=== PATIENT | female | born 1950 | race Caucasian/White ===

== ENCOUNTER → 2016-09-22 | Outpatient (CLI) | payer OTHER ==
[~2016-09-22] MED LIST: ANAS1TAB6 PO; CALC500C70 PO; MULT-506 PO; OYST500T47 PO; PRVC/40 PO
[2016-09-22 10:45] LABS: ESTIMATED AVERAGE GLUCOSE 103 mg/dl; HA1C FLAG Normal (Normal)
[2016-09-22 10:55] LABS: CHOLESTEROL/HDL RATIO 3.1
--- NOTE | 2016-10-20 12:23 | CODING QUERY MEDICAL NECESSITY ---
SUPPORTING DIAGNOSIS NEEDED A supporting diagnosis is required for the test/procedure performed on this patient in order for us to be reimbursed by the patient's insurance. Please provide a supporting diagnosis for the following test/procedure listed below next to the test name along with your signature. *If there is no additional diagnosis for this patient that would support the following test/procedure please document that below next to the test/procedure. Test(s)/Procedure(s) that require a supporting diagnosis: * GLYCATED HEMOGLOBIN DIAGNOSIS: * DOS: 09/22/16 Provider Signature: Date: Thank you Denia Molina Health Information Management Once completed, please kindly fax back to [phone] For questions please call [phone]
== END | disposition home or self-care (01) ==
LOC: C.LABSPEC 16:29
PROVIDERS: ATTEND Family Medicine
DX: Z13.1 Encounter for screening for diabetes mellitus (principal); Z83.3 Family history of diabetes mellitus; E78.2 Mixed hyperlipidemia; C50.912 Malignant neoplasm of unspecified site of left female breast

== ENCOUNTER → 2016-10-05 | Outpatient (CLI) | payer OTHER ==
--- NOTE | 2016-10-05 16:38 | MAMMOGRAPHY REPORT ---
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 She presents for annual bilateral mammography. TECHNIQUE: Bilateral CC and MLO 2-D digital and tomosynthesis images, spot magnification CC and ML v iews of each breast were obtained. Current study was also evaluated with a Computer Aided Detection (CAD) system. COMPARISON: Comparison is made to exams dated: 04/06/2016 mammogram, 10/01/2015 mammogram, 04/02/2015 mammogram - [facility], and 09/18/2014 mammogram. BREAST COMPOSITION: The tissue of both breasts is heterogeneously dense, which may obscure small ma sses. FINDINGS: There is mild diffuse skin thickening and trabecular edema throughout the left breast, wit h expected architectural distortion in the upper outer posterior left breast, secondary to prior lum pectomy and radiation. There are round) calcifications anterior and medial to the surgical site in the left breast in particular, a grouping of calcifications in the approximate 12:00 middle one thir d of the left breast is stable to slightly coarsened comparing to the prior spot magnification views . No new suspicious grouping or cluster of calcifications are seen in the left breast. No obvious new mass or unexpected architectural distortion. There is a stable asymmetry in the central right breast that appears similar on all available prior mammograms dating back to at least 05/21/2009, therefore likely benign. There is a new faintly visu alized grouping of calcifications in the anterior 6:00/subareolar right breast for which additional spot magnification views were obtained. With spot magnification views there is an approximately 2 m m cluster of faint punctate and amorphous microcalcifications they may have been present on the 2016 exam but are slightly increased in conspicuity. They are different in morphology from the patient' s left breast DCIS. Given the small grouping and faint nature of these calcifications, a short inte rval follow-up right mammogram including repeat spot magnification views is recommended to ensure st ability in 6 months. No obvious new mass or unexpected architectural distortion is identified in th e right breast. IMPRESSION: ACR-BI-RADS CATEGORY 3: PROBABLY BENIGN 1. A newly visualized faint grouping of punctate and amorphous microcalcifications in the 6:00 ante rior subareolar right breast may represent benign fibrocystic changes. However, a short interval fo llow-up right mammogram including spot magnification views is recommended to ensure stability in 6 m onths. 2. There are expected post-therapeutic changes in the left breast, with probably benign calcificati ons anterior and medial to the surgical site. Continued attention at six-month follow-up is again r ecommended. These results and recommendations were discussed with the patient at the time of the exam. She tent atively scheduled a follow-up appointment prior to leaving our department. Approximately 10% of breast cancers are not detected with mammography. A negative mammographic repor t should not delay biopsy if a clinically suggestive mass is present. Cici Oconnell M.D. ay/:10/05/2016 15:00:08 Automobile Body Worker: Shon SEBASTIAN(Charo)(M), [facility] letter sent: Follow Up Recommended 3 BI-RADS Code: ACR-BI-RADS Category 3: Probably Benign
== END | disposition home or self-care (01) ==
LOC: C.MAMM 13:26
PROVIDERS: ATTEND Family Medicine
DX: Z86.000 Personal history of in-situ neoplasm of breast (principal); R92.8 Other abnormal and inconclusive findings on diagnostic imaging of breast; R92.1 Mammographic calcification found on diagnostic imaging of breast; Z92.3 Personal history of irradiation

== ENCOUNTER → 2017-04-08 | Outpatient (CLI) | payer OTHER ==
[~2017-04-08] MED LIST changes: -ANAS1TAB6 PO; -CALC500C70 PO
--- NOTE | 2017-04-08 12:38 | MAMMOGRAPHY REPORT ---
BILATERAL DIGITAL DIAGNOSTIC MAMMOGRAM TOMOSYNTHESIS WITH CAD: 04/08/2017 CLINICAL HISTORY: History of left breast cancer status post lumpectomy and radiation therapy, here fo r short interval follow-up of bilateral calcifications. She reports no current complaints. TECHNIQUE: Breast tomosynthesis in addition to standard 2D mammography was performed. Current study was also evaluated with a Computer Aided Detection (CAD) system. Bilateral CC and MLO 2-D and tomosy nthesis images and spot magnification bilateral cc and ML views were obtained. COMPARISON: Comparison is made to exams dated: 10/05/2016 mammogram, 04/06/2016 mammogram, 10/01/2015 [facility], 09/18/2014 mammogram, 08/02/2014 mammogram, and 07/17/2014 mamm ogram. BREAST COMPOSITION: The tissue of both breasts is heterogeneously dense, which may obscure small mas ses. FINDINGS: Again noted are post surgical changes in the left upper outer quadrant from prior lumpectom y, including stable density and architectural distortion at the lumpectomy bed. There is stable mild diffuse left breast skin thickening, likely related to prior radiation therapy. Again noted are loo sely grouped calcifications in the left 12:00 breast anterior and medial to the lumpectomy bed. The calcifications are stable on spot magnification views dating back to September 2015 and are probably adair gn. Spot magnification views of the right breast demonstrate a small faint 2 mm cluster of punctate benign-appearing calcifications in the right anterior subareolar/6:00 breast, which are stable on spo t magnification views compared to the September 2016 exam, and in retrospect are likely stable compared t o prior full field views from the 2012 and 2010 exams. The calcifications are probably benign. The remainder of both breasts are stable compared to prior exams, without suspicious masses, calcific ations, or areas of architectural distortion noted. Other scattered benign-appearing calcifications are stable. IMPRESSION: ACR-BI-RADS CATEGORY 3: PROBABLY BENIGN 1. Stable posttreatment changes in the left breast. Loosely grouped calcifications in the left 12:0 0 breast medial and anterior to the lumpectomy bed are stable dating back to the September 2015 exam and are probably benign given long-term stability. 2. Small cluster of punctate benign-appearing calcifications in the right anterior breast is stable compared to the September 2016 exam and likely also the 2012 and 2010 exams. The calcifications are prob ably benign. 3. Recommend bilateral diagnostic mammograms in 6 months to confirm longer stability of bilateral ca lcifications on spot magnification views. The patient has been verbally notified of the results. Approximately 10% of breast cancers are not detected with mammography. A negative mammographic report should not delay biopsy if a clinically suggestive mass is present. Rimma Pearce M.D. ah/:04/08/2017 11:27:32 Powertrain Design Engineer: Julia SEBASTIAN(Charo)(M), [facility] letter sent: Follow Up Recommended 3 BI-RADS Code: ACR-BI-RADS Category 3: Probably Benign
== END | disposition home or self-care (01) ==
LOC: C.MAMM 10:52
PROVIDERS: ATTEND Physician Assistant
DX: R92.1 Mammographic calcification found on diagnostic imaging of breast (principal); Z98.890 Other specified postprocedural states

== ENCOUNTER → 2017-10-06 | Outpatient (CLI) | payer OTHER ==
--- NOTE | 2017-10-06 14:14 | MAMMOGRAPHY REPORT ---
BILATERAL DIGITAL DIAGNOSTIC MAMMOGRAM TOMOSYNTHESIS WITH CAD: 10/06/2017 CLINICAL HISTORY: History of left breast cancer status post lobectomy and radiation therapy, here for short interval follow-up of bilateral calcifications. She reports no current complaints. TECHNIQUE: Breast tomosynthesis in addition to standard 2D mammography was performed. Current study was also evaluated with a Computer Aided Detection (CAD) system. Bilateral CC and MLO 2D and tomosyn thesis images and spot magnification bilateral CC and ML views were obtained. COMPARISON: Comparison is made to exams dated: 04/08/2017 mammogram, 10/05/2016 mammogram, 04/06/2016 m ammogram, 10/01/2015 mammogram, 04/02/2015 mammogram - [facility], and 09/18/2014 mammo gram. BREAST COMPOSITION: The tissue of both breasts is heterogeneously dense, which may obscure small mas ses. FINDINGS: Spot magnification views of the right breast again demonstrate a small 2 mm cluster of punc germain benign-appearing calcifications in the right anterior inferior breast. The calcifications are s table on spot magnification views dating back to at least the September 2016 exam, and in retrospect are likely present on the MLO view from the 2012 exam. Spot magnification views of the left breast again demonstrate loosely grouped calcifications within the left 12:00 breast anterior and medial to the l umpectomy bed. The calcifications are stable on spot magnification views dating back to at least Sep exam, and are probably benign given 2 years of stability. The remainder of both breasts are stable compared to prior exams, without suspicious masses, calcific ations, or areas of architectural distortion noted. There are stable post surgical changes in the le ft upper outer quadrant posteriorly from prior lumpectomy. Asymmetry in the right posterior breast o n the cc view is stable compared to multiple prior exams. IMPRESSION: ACR-BI-RADS CATEGORY 3: PROBABLY BENIGN Stable posttreatment changes in the left breast. Loosely grouped calcifications in the left 12:00 br east are stable dating back to the September 2015 exam and are probably benign. Small cluster of punctat e calcifications in the right anterior breast is stable dating back to the September 2016 exam and is als o probably benign. Recommend bilateral diagnostic tomosynthesis mammograms in 12 months to confirm l onger-term stability of bilateral calcifications. The patient has been verbally notified of the results. Approximately 10% of breast cancers are not detected with mammography. A negative mammographic report should not delay biopsy if a clinically suggestive mass is present. Rimma Pearce M.D. ah/:10/06/2017 11:25:04 Manager Icu: Isha Cartwright, [facility] letter sent: Follow Up Recommended 3 BI-RADS Code: ACR-BI-RADS Category 3: Probably Benign
== END | disposition home or self-care (01) ==
LOC: C.MAMM 10:27
PROVIDERS: ATTEND Nurse Practitioner Family
DX: R92.0 Mammographic microcalcification found on diagnostic imaging of breast (principal); N64.89 Other specified disorders of breast

== ENCOUNTER 2020-05-24 11:13 | Observation (INO) ==
[2020-05-24] MEDS ORDERED: SODIUM CHLORIDE 0.9% 1000ML 1,000 ML IV ONE (12:31)
--- NOTE | 2020-05-24 12:37 | Emergency Department Note ---
History of Present Illness General Chief complaint: Syncope Stated complaint: PASSED OUT TWICE Time Seen by Provider: 05/24/20 11:47 Source: patient and family Mode of arrival: ambulatory Limitations: no limitations History of Present Illness Provider complaint: Passing out Onset (ago): day(s) 2 Current Pain Intensity: 0 Associated symptoms: + malaise and + nausea/vomiting Treatments prior to arrival: none This is a 69-year-old female who presents with her at bedside due to concern for recurrent episodes of passing out. states she had an episode 1 month ago, and thought it was strictly due to dehydration so she did not go seek evaluation. States that on Wednesday while they were outside tending to the lawn, she again passed out twice. states he had to call a neighbor to help, get her back into the house. States he did not notice any seizure-like activity. Patient states she can feel herself getting lightheaded, nauseated, develops numbness and tingling in her hands and feet, and then the next thing she knows she is on the floor. Patient denies any injury secondary to these episodes. Patient still maintains she believes it is secondary to dehydration but thought she should seek additional evaluation. Patient most concerned that she has a history of breast cancer remotely. Patient denies any new medications or change in diet. Patient denies any cardiac history in herself or any family members. No family history of seizures. Patient denies any recent infection, cough or cold symptoms. Patient denies any known sick contacts or exposure to coronavirus. Pt seen during a time of high acuity and national emergency pandemic while wearing PPE. Home Medications Home Medications Medication Instructions Recorded Confirmed Type multivitamin 1 tab PO QPM #0 tab 10/24/14 05/24/20 History aspirin [Aspirin Low Dose] 81 mg PO DAILY 05/24/20 05/24/20 History pravastatin 20 mg PO DAILY 05/24/20 05/24/20 History doxycycline hyclate 100 mg PO BID 13 Days #26 cap 05/25/20 Rx omeprazole 40 mg PO DAILY #14 cap 05/25/20 Rx ondansetron 4 mg PO Q6H PRN #10 tab 05/25/20 Rx Allergies Allergy/AdvReac Type Severity Reaction Status Date / Time ranitidine Allergy Intermediate Rash Verified 05/24/20 13:21 Past Med/Surg History Medical History (Updated 05/26/20 @ 23:04 by Charity Cruz, ) Breast cancer Cancer of urinary tract GERD (gastroesophageal reflux disease) Lyme disease 2 episodes; previous episode 2019 Osteoarthritis Tremor HANDS-"REALLY NERVOUS"-NO DX-F/U PCP Surgical History History of hysterectomy AND OTHER OVARY Hx of lumpectomy LEFT-LEFT ARM RESTRICTION Nausea and vomiting after administration of anesthetic agent Ovarian 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 Diabetes Heart disease Mother Kidney stones Heart disease Social History Smoking Status: Never smoker Second Hand Exposure: No; Hx Alcohol Use: Yes Alcohol type: wine Hx Substance Use: No Preferred Language: Zambian Communication Ability: Effective Visual Impairment: No Limitations Eyelet Cutter Required: No Beliefs That Will Affect Care: None marital status: Current Living Situation: Spouse Current Living Situation Comment: lives in [place] current occupational status: retired current occupation: worked at [employer], [employer] work, other [employer] work How many Children do You have: 1 Feels Safe at Home: Yes Assistive Devices: None Review of Systems See HPI for pertinent positives & negatives. and A total of 10 systems reviewed and were otherwise negative Physical Exam Vital Signs Vital Signs - 24 hr 05/24/20 11:19 05/24/20 14:00 05/24/20 14:50 Temperature 37.1 C Temperature Source Oral Pulse Rate - Lying 74 Pulse Rate - Sitting 76 Pulse Rate - Standing 78 Pulse Rate 78 73 Pulse Rate [Exercises] Respiratory Rate 18 17 Respiratory Rate [Exercises] Respiratory Effort / Characteristics Non-Labored Spontaneous Respiratory Depth Normal Respiratory Pattern Regular Blood Pressure - Lying 124/68 Blood Pressure - Sitting 138/71 Blood Pressure- Standing 138/73 Blood Pressure 148/82 H 118/63 Blood Pressure Mean 104 83 Blood Pressure Position Sitting Pulse Oximetry 96 96 Pulse Oximetry [Exercises] Oxygen Delivery Method Room Air Room Air Sepsis Recent Fever Within 48 Hours No Sepsis New/Unexplained Change in Mental Status N/A Sepsis Action Taken by Nursing No Action Required 05/24/20 15:03 Temperature Temperature Source Pulse Rate - Lying Pulse Rate - Sitting Pulse Rate - Standing Pulse Rate Pulse Rate [Exercises] 80 Respiratory Rate Respiratory Rate [Exercises] 22 Respiratory Effort / Characteristics Respiratory Depth Respiratory Pattern Blood Pressure - Lying Blood Pressure - Sitting Blood Pressure- Standing Blood Pressure Blood Pressure Mean Blood Pressure Position Pulse Oximetry Pulse Oximetry [Exercises] 88 L Oxygen Delivery Method Room Air Sepsis Recent Fever Within 48 Hours Sepsis New/Unexplained Change in Mental Status Sepsis Action Taken by Nursing GENERAL: alert, anxious appearing, well nourished, no distress, non-toxic, tearful EYE EXAM: normal conjunctiva, PERRL and EOM's grossly intact OROPHARYNX: no exudate, no erythema, lips, buccal mucosa, and tongue normal and mucous membranes are moist NECK: supple, no nuchal rigidity, no adenopathy, non-tender LUNGS: Clear to auscultation. Normal chest wall mechanics, no w/r/r HEART: no murmurs, S1 normal and S2 normal ABDOMEN: abdomen soft, non-tender, normo-active bowel sounds, no masses, no rebound or guarding. BACK: Back is symmetrical on inspection and there is no deformity, no midline tenderness, no CVA tenderness. SKIN: no rashes and no bruising UPPER EXTREMITIES: upper extremities are grossly normal. FROM, nml pulses b/l. LOWER EXTREMITIES: No pitting edema. FROM, nml pulses b/l. NEURO EXAM: Normal sensorium, cranial nerves II-XII grossly intact, normal speech, no gross weakness of arms, no gross weakness of legs. Gross sensation intact. Course Course 1526: Patient updated on all results. Patient denies any shortness of breath. Patient states occasionally she does notice that with walking she gets a discomfort in her chest, denies that it is pain. Discussed with patient my concern for possible cardiac etiology. Patient would like to go home. With additional bedside discussion patient was ultimately in agreement with plan for CT of the chest given history and symptoms. 1540: Discussed with Casper, on-call nurse practitioner for patient's PCP Elis Estrada. She will make a note for the patient's PCP for referral into cardiology, has no idea how quickly that can be arranged. 1620: Extensive bedside discussion with the patient regarding risks and options for disposition. While patient CT is reassuring, patient has exertional symptoms, and risk factors. Heart score 4. Pt's oxygen dropped to 88% with ambulation although pt denies feeling SOB. 1629: Discussed with Dr. Encarnacion, and JOHNNY Branch of [facility] team. Administered Medications Discontinued Medications Aspirin (Aspirin 81 Mg Ectab) 81 mg PO DAILY ERIKA Stop: 06/24/20 08:59 Last Admin: 05/25/20 08:13 Dose: 81 mg Documented by: [id number] Doxycycline Hyclate (Doxycycline Hyclate 100 Mg Cap) 100 mg PO BID ERIKA Stop: 06/03/20 20:59 Last Admin: 05/25/20 08:13 Dose: 100 mg Documented by: [id number] Admin: 05/24/20 21:29 Dose: 100 mg Documented by: [id number] Sodium Chloride (Nss 1000ml) 1,000 mls @ 999 mls/hr IV .Q1H1M ONE Stop: 05/24/20 13:31 Last Infusion: 05/24/20 14:09 Dose: 0 mls/hr Documented by: [id number] Admin: 05/24/20 12:41 Dose: 999 mls/hr Documented by: [id number] Sodium Chloride (Nss 1000ml) 1,000 mls @ 100 mls/hr IV .Q10H ERIKA Stop: 05/25/20 16:02 Last Infusion: 05/25/20 13:38 Dose: 0 mls/hr Documented by: [id number] Admin: 05/25/20 07:55 Dose: 100 mls/hr Documented by: [id number] Infusion: 05/25/20 07:29 Dose: 100 mls/hr Documented by: [id number] Admin: 05/24/20 21:29 Dose: 100 mls/hr Documented by: [id number] Ioversol (Optiray 320 125ml) 120 ml IV ONCE ONE Stop: 05/24/20 15:43 Last Admin: 05/24/20 15:42 Dose: 120 ml Documented by: [id number] Multivitamins (Multivitamin Tab) 1 tab PO QPM ERIKA Stop: 06/23/20 20:59 Last Admin: 05/24/20 21:29 Dose: 1 tab Documented by: [id number] Pravastatin Sodium (Pravastatin Sod 20 Mg Tab) 20 mg PO DAILY ERIKA Stop: 06/24/20 08:59 Last Admin: 05/25/20 08:13 Dose: 20 mg Documented by: [id number] Medical Decision Making Differential Diagnosis Differential diagnosis includes etiologies such as vasovagal event, infection, hypoglycemia, electrolyte abnormalities, cardiac sources, intracerebral event, toxicologic, neurologic, as well as others were entertained. Medical Records Attestation: I reviewed the patient's medical records. Home Medications Current Medication List: was personally reviewed by me Laboratory Data Attestation: I reviewed the patient's lab results. Result diagrams: 05/24/20 12:25 05/24/20 12:25 Lab Results 05/24/20 05/24/20 05/24/20 Range/Units 12:25 12:25 12:25 WBC 7.40 (4.8-10.8) K/uL RBC 4.71 (4.2-5.4) M/uL Hgb 14.6 (12.0-16.0) g/dL Hct 44.2 (37-47) % MCV 93.8 (80-100) fL MCH 31.0 (25-34) pg MCHC 33.0 (32-36) g/dL RDW Std Deviation 44.9 (36.4-46.3) fL RDW Coeff of Miguel 13.0 (11.5-14.5) % Plt Count 168 (130-400) K/uL MPV 11.0 H (7.4-10.4) fL Immature Gran % (Auto) 0.1 % Neut % (Auto) 78.8 % Lymph % (Auto) 14.1 % Green % (Auto) 5.3 % Eos % (Auto) 1.4 % Baso % (Auto) 0.3 % Neut # (Auto) 5.84 (1.4-6.5) K/uL Lymph # (Auto) 1.04 L (1.2-3.4) K/uL Green # (Auto) 0.39 (0.11-0.59) K/uL Eos # (Auto) 0.10 (0-0.5) K/uL Baso # (Auto) 0.02 (0-0.2) K/uL Immature Gran # (Auto) 0.01 (0.00-0.02) K/uL PT 10.2 (9.0-12.0) Seconds INR 1.0 (0.9-1.1) Sodium 140 (136-145) mmol/L Potassium 4.3 (3.5-5.1) mmol/L Chloride 107 (98-107) mmol/L Carbon Dioxide 27 (21-32) mmol/L Anion Gap 7.0 (3-11) BUN 19 H (7-18) mg/dl Creatinine 0.95 (0.6-1.2) mg/dl Est Cr Clr Drug Dosing 49.1 ml/min Est GFR ( Amer) 69.8 Est GFR (Non-Af Amer) 60.3 BUN/Creatinine Ratio 20.1 H (10-20) Glucose 83 (70-99) mg/dl Calcium 10.1 (8.5-10.1) mg/dl Magnesium 2.2 (1.8-2.4) mg/dl Total Bilirubin 0.6 (0.2-1) mg/dl AST 17 (15-37) U/L ALT 27 (12-78) U/L Alkaline Phosphatase 87 (45-117) U/L Troponin I < 0.015 (0-0.045) ng/ml NT-Pro-B Natriuret Pep 119 (0-900) pg/ml Total Protein 7.9 (6.4-8.2) gm/dl Albumin 4.2 (3.4-5.0) gm/dl Globulin 3.7 (2.5-4.0) gm/dl Albumin/Globulin Ratio 1.1 (0.9-2) Lipase 146 (73-393) U/L TSH 2.110 (0.300-4.500) uIu/ml Urine Color Urine Appearance (Clear) Urine pH (4.5-7.5) Ur Specific [place] (1.000-1.030) Urine Protein (Negative) Urine Glucose (UA) (Negative) Urine Ketones (Negative) Urine Blood (Negative) Urine Nitrite (Negative) Urine Bilirubin (Negative) Urine Urobilinogen (Negative) Ur Leukocyte Esterase (Negative) Urine WBC (Auto) (0-5) /hpf Urine RBC (Auto) (0-4) /hpf U Hyaline Cast (Auto) (0-5) /lpf U Epithel Cells (Auto) (0-5) /lpf Urine Bacteria (Auto) (Negative) Lyme Disease IgG Ab (Negative) Lyme Disease IgM Ab (Negative) 05/24/20 05/24/20 Range/Units 12:25 12:25 WBC (4.8-10.8) K/uL RBC (4.2-5.4) M/uL Hgb (12.0-16.0) g/dL Hct (37-47) % MCV (80-100) fL MCH (25-34) pg MCHC (32-36) g/dL RDW Std Deviation (36.4-46.3) fL RDW Coeff of Miguel (11.5-14.5) % Plt Count (130-400) K/uL MPV (7.4-10.4) fL Immature Gran % (Auto) % Neut % (Auto) % Lymph % (Auto) % Green % (Auto) % Eos % (Auto) % Baso % (Auto) % Neut # (Auto) (1.4-6.5) K/uL Lymph # (Auto) (1.2-3.4) K/uL Green # (Auto) (0.11-0.59) K/uL Eos # (Auto) (0-0.5) K/uL Baso # (Auto) (0-0.2) K/uL Immature Gran # (Auto) (0.00-0.02) K/uL PT (9.0-12.0) Seconds INR (0.9-1.1) Sodium (136-145) mmol/L Potassium (3.5-5.1) mmol/L Chloride (98-107) mmol/L Carbon Dioxide (21-32) mmol/L Anion Gap (3-11) BUN (7-18) mg/dl Creatinine (0.6-1.2) mg/dl Est Cr Clr Drug Dosing ml/min Est GFR ( Amer) Est GFR (Non-Af Amer) BUN/Creatinine Ratio (10-20) Glucose (70-99) mg/dl Calcium (8.5-10.1) mg/dl Magnesium (1.8-2.4) mg/dl Total Bilirubin (0.2-1) mg/dl AST (15-37) U/L ALT (12-78) U/L Alkaline Phosphatase (45-117) U/L Troponin I (0-0.045) ng/ml NT-Pro-B Natriuret Pep (0-900) pg/ml Total Protein (6.4-8.2) gm/dl Albumin (3.4-5.0) gm/dl Globulin (2.5-4.0) gm/dl Albumin/Globulin Ratio (0.9-2) Lipase (73-393) U/L TSH (0.300-4.500) uIu/ml Urine Color Yellow Urine Appearance Clear (Clear) Urine pH 6.5 (4.5-7.5) Ur Specific [place] 1.008 (1.000-1.030) Urine Protein Negative (Negative) Urine Glucose (UA) Negative (Negative) Urine Ketones Negative (Negative) Urine Blood Negative (Negative) Urine Nitrite Negative (Negative) Urine Bilirubin Negative (Negative) Urine Urobilinogen Negative (Negative) Ur Leukocyte Esterase 1+ H (Negative) Urine WBC (Auto) 1-5 (0-5) /hpf Urine RBC (Auto) 0-4 (0-4) /hpf U Hyaline Cast (Auto) 0 (0-5) /lpf U Epithel Cells (Auto) 10-20 H (0-5) /lpf Urine Bacteria (Auto) Negative (Negative) Lyme Disease IgG Ab Positive A (Negative) Lyme Disease IgM Ab Negative (Negative) Imaging Data Radiologist's Impression: CT SCAN OF THE BRAIN WITHOUT IV CONTRAST CLINICAL HISTORY: Syncope. COMPARISON STUDY: No priors. TECHNIQUE: Unenhanced axial CT scan of the brain is performed from the vertex to the skull base. A dose lowering technique was utilized adhering to the principles of ALARA. CT DOSE: 537.48 mGy.cm FINDINGS: Brain parenchyma: The brain parenchyma is normal in appearance. There is no hemorrhage, mass effect, or evidence of acute territorial ischemia by CT criteria. Fair-white matter differentiation is preserved. No extra-axial fluid collection is seen. Ventricles, sulci, cisterns: Normal in configuration. Intracranial vasculature: There is mild atherosclerotic calcification of the cavernous carotid and vertebral arteries. Calvarium: Unremarkable. Sinuses and mastoids: The visualized paranasal sinuses are clear. The mastoid air cells are well pneumatized. Orbits: The bony orbits are grossly intact. IMPRESSION: There is no hemorrhage, mass effect, or evidence of acute territorial ischemia by CT criteria. ACT 112: Negative or not required by law. Electronically signed by: Favio Barnett M.D. 05/24/2020 1:02 PM XR chest 1V portable HISTORY: syncope COMPARISON: Chest 02/01/2019. FINDINGS: Stable small linear scarlike density within the right midlung zone. No pneumothorax. No pleural effusions. The heart is normal in size. There is 9 mm left suprahilar nodular density. No evidence for pulmonary edema. Old, healed left-sided rib fractures. IMPRESSION: A 9 mm left suprahilar nodular density. This could be due to the overlying vessels. However, follow-up nonemergent chest CT recommended to exclude a pulmonary lesion. ACT 112: Negative or not required by law. Electronically signed by: Danie Yeung M.D. 05/24/2020 1:[address] ANGIOGRAPHY OF THE CHEST, PULMONARY EMBOLUS PROTOCOL CLINICAL HISTORY: Shortness of breath. Chest pain. Evaluate for pulmonary embolus. COMPARISON STUDY: Chest radiograph February 01, 2019 and chest radiograph performed earlier today. TECHNIQUE: Following IV administration of 120 mL of Optiray-320, helical axial images of the chest were obtained utilizing the pulmonary embolus protocol. Maximal intensity projections and sagittal and coronal reformats were viewed on an independent 3D workstation. IV contrast was administered without complica tion. Automated exposure control was utilized for the study. A dose lowering technique was utilized adhering to the principles of ALARA. CT DOSE: 260.06 mGy.cm FINDINGS: No pulmonary embolus is identified. There is no thoracic aortic dissection. The size the heart is normal. Note is made of an enlarged partially calcified left hilar lymph node on image 132 of 293 measures 2 x 1.6 cm. A mild ly enlarged AP window lymph node on image 167 measures 1.1 cm. There is no consolidation to suggest pneumonia. Subpleural opacities reflect atelectasis. A few small subpleural nodules are benign. The possible left suprahilar nodule on chest radiograph was artifactual. Bony thorax is unremarkable. There is mild asymmetric left breast skin thickening. There is mild asymmetric left upper breast infiltration. IMPRESSION: 1. No pulmonary emboli identified. 2. No finding to correspond to the left suprahilar nodule on chest radiograph. This was artifactual. 3. Several mildly enlarged left hilar or mediastinal lymph nodes which are partially calcified. These are probably benign however a follow-up chest CT in 6 months to ensure stability is recommended. 3. Asymmetric left breast skin thickening. This is nonspecific and may be treatment-related however correlation with treatment history is recommended. ACT 112: Negative or not required by law. Electronically signed by: Jasson Duran M.D. 05/24/2020 4:02 PM ECG Data Attestation: I personally reviewed and interpreted this ECG as follows: Indication: + syncope Rate (beats per minute): 74 Rhythm: + normal sinus ECG Intervals/blocks: + Normal QRS and + Normal QT ECG [place]: + Normal ECG ST segments: + Normal ST segments Blood Pressure Blood Pressure Findings: Elevated blood pressure MDM Narrative Pt here after multiple syncopal events, including twice this week. Pt very anxious and admits to diffuclty with anxiety, however she and are concerned due to repeat episodes. Pt feels dehydration could have caused the events, but given they have happened several times, she finally decided to seek medical treatment. No hx of heart problems. VS stable. Labs sent, given age and hx pt sent for CT head and cxr which were reassuring. Concern given HEART score 4 and abnormal pulse ox with ambulatory trial, discussed with pt all results and benefit of additional inpatient monitoring. I do feel vasovagal syncope likely given description of prodromal symptoms and concern for acco mpaning dehydration. No ectopy of dyrhythmia noted on tele. Orthostatics negative, however this was after IVF were given. H/H stable, no acute electrolyte abnormalities. No evidence of infectious etiology. Troponin negative, however no prior cardiac evaluation. Extensive bedside discussion wit h pt and who are in agreement with plan for additional inpatient evaluation. Pt with normal and nonfocal neuro exam, I have a lot suspecion for occult TOSSER pathology contributing to syncopal events. An order was placed for continuous cardiac monitoring. The monitor shows a rate of _80_ with _normal sinus__ rhythm. Impression & Plan Syncope, Anxiety Discharge Plan Visit Data Chief Complaint: Syncope Stated Complaint: PASSED OUT TWICE ED Provider: Charity Cruz Discharge Problem: Syncope, Anxiety Patient Disposition: Admitted As Inpatient Discharge Instructions Interventions: ED Discharge Assessment Last Done: 05/24/20 19:50 Discharge Problem: Syncope Qualifiers: Syncope type: vasovagal syncope Qualified Code(s): R55 - Syncope and collapse
[2020-05-24 12:40] LABS: Basophils # (auto) 0.02 K/uL (0-0.2); Basophils % (auto) 0.3 %; Eosinophils % (auto) 1.4 %; Hematocrit (blood only) 44.2 % (37-47); Hemoglobin 14.6 g/dL (12.0-16.0); Immature Granulocytes # (auto) 0.01 K/uL (0.00-0.02); Immature Granulocytes % (auto) 0.1 %; Lymphocytes # (auto) 1.04 K/uL (1.2-3.4); Lymphocytes % (auto) 14.1 %; Mean Corpuscular Volume 93.8 fL (80-100); Monocytes # (auto) 0.39 K/uL (0.11-0.59); Monocytes % (auto) 5.3 %; Neutrophils # (auto) 5.84 K/uL (1.4-6.5); Neutrophils % (auto) 78.8 %; Platelet Count 168 K/uL (130-400); RDW Standard Deviation 44.9 fL (36.4-46.3); Red Blood Count 4.71 M/uL (4.2-5.4)
[2020-05-24 12:49] LABS: Prothrombin Time 10.2 Seconds (9.0-12.0)
[2020-05-24 12:56] LABS: Appearance Urine Clear (Clear); Bacteria Urine Automated Negative (Negative); Bilirubin Urine Negative (Negative); Blood Urine Negative (Negative); Cast Urine Automated 0 /lpf (0-5); Color Urine Yellow; Glucose Urine UA Negative (Negative); Ketones Urine Negative (Negative); Leukocyte Esterase Urine 1+ (Negative); Nitrite Urine Negative (Negative); Protein Urine Negative (Negative); RBC Urine Automated 0-4 /hpf (0-4); Specific Gravity Urine 1.008 (1.000-1.030); Urobilinogen Urine Negative (Negative); pH Urine 6.5 (4.5-7.5)
[2020-05-24 12:58] LABS: Alanine Aminotransferase 27 U/L (12-78); Albumin Level 4.2 gm/dl (3.4-5.0); Aspartate Aminotransferase 17 U/L (15-37); BUN Creatinine Ratio 20.1 (10-20); Blood Urea Nitrogen 19 mg/dl (7-18); Calcium 10.1 mg/dl (8.5-10.1); Carbon Dioxide 27 mmol/L (21-32); Chloride 107 mmol/L (98-107); Creatinine Clr Calc Pharmacy 49.1 ml/min; Est GFR (African American) 69.8; Est GFR (Non-African American) 60.3; Glucose 83 mg/dl (70-99); Lipase 146 U/L (73-393); Magnesium 2.2 mg/dl (1.8-2.4); Potassium 4.3 mmol/L (3.5-5.1); Sodium 140 mmol/L (136-145)
--- NOTE | 2020-05-24 13:03 | CT Scan Report ---
CT SCAN OF THE BRAIN WITHOUT IV CONTRAST CLINICAL HISTORY: Syncope. COMPARISON STUDY: No priors. TECHNIQUE: Unenhanced axial CT scan of the brain is performed from the vertex to the skull base. A d ose lowering technique was utilized adhering to the principles of ALARA. CT DOSE: 537.48 mGy.cm FINDINGS: Brain parenchyma: The brain parenchyma is normal in appearance. There is no hemorrhage, mass effect, or evidence of acute territorial ischemia by CT criteria. Fair-white matter differentiation is preser nikos. No extra-axial fluid collection is seen. Ventricles, sulci, cisterns: Normal in configuration. Intracranial vasculature: There is mild atherosclerotic calcification of the cavernous carotid and ve rtebral arteries. Calvarium: Unremarkable. Sinuses and mastoids: The visualized paranasal sinuses are clear. The mastoid air cells are well pneu matized. Orbits: The bony orbits are grossly intact. IMPRESSION: There is no hemorrhage, mass effect, or evidence of acute territorial ischemia by CT daryl barros. ACT 112: Negative or not required by law. Electronically signed by: Favio Barnett M.D. 05/24/2020 1:02 PM
[2020-05-24 13:09] LABS: Albumin Globulin Ratio 1.1 (0.9-2); Alkaline Phosphatase 87 U/L (45-117); Bilirubin,Total 0.6 mg/dl (0.2-1); Globulin 3.7 gm/dl (2.5-4.0); NT Pro B Type Natriuretic Pept 119 pg/ml (0-900); Total Protein 7.9 gm/dl (6.4-8.2); Troponin I < 0.015 ng/ml (0-0.045)
--- NOTE | 2020-05-24 13:12 | XRay Report ---
XR chest 1V portable HISTORY: syncope COMPARISON: Chest 02/01/2019. FINDINGS: Stable small linear scarlike density within the right midlung zone. No pneumothorax. No ple ural effusions. The heart is normal in size. There is 9 mm left suprahilar nodular density. No eviden ce for pulmonary edema. Old, healed left-sided rib fractures. IMPRESSION: A 9 mm left suprahilar nodular density. This could be due to the overlying vessels. However, follow-u p nonemergent chest CT recommended to exclude a pulmonary lesion. ACT 112: Negative or not required by law. Electronically signed by: Danie Yeung M.D. 05/24/2020 1:11 PM
[2020-05-24 13:55] LABS: Lyme Ab IgM w/WB Rflx Negative (Negative)
[2020-05-24 14:06] LABS: Lyme Ab IgG w/WB Rflx Positive (Negative)
[2020-05-24] MEDS ORDERED: OPTIRAY 320 125ml IV ONE (15:42)
--- NOTE | 2020-05-24 16:03 | CT Scan Report ---
CT ANGIOGRAPHY OF THE CHEST, PULMONARY EMBOLUS PROTOCOL CLINICAL HISTORY: Shortness of breath. Chest pain. Evaluate for pulmonary embolus. COMPARISON STUDY: Chest radiograph February 01, 2019 and chest radiograph performed earlier today. TECHNIQUE: Following IV administration of 120 mL of Optiray-320, helical axial images of the chest we re obtained utilizing the pulmonary embolus protocol. Maximal intensity projections and sagittal and coronal reformats were viewed on an independent 3D workstation. IV contrast was administered withou t complication. Automated exposure control was utilized for the study. A dose lowering technique wa s utilized adhering to the principles of ALARA. CT DOSE: 260.06 mGy.cm FINDINGS: No pulmonary embolus is identified. There is no thoracic aortic dissection. The size the h eart is normal. Note is made of an enlarged partially calcified left hilar lymph node on image 132 of 293 measures 2 x 1.6 cm. A mildly enlarged AP window lymph node on image 167 measures 1.1 cm. There is no consolidation to suggest pneumonia. Subpleural opacities reflect atelectasis. A few small subpl eural nodules are benign. The possible left suprahilar nodule on chest radiograph was artifactual. Miah ny thorax is unremarkable. There is mild asymmetric left breast skin thickening. There is mild asymme tric left upper breast infiltration. IMPRESSION: 1. No pulmonary emboli identified. 2. No finding to correspond to the left suprahilar nodule on chest radiograph. This was artifactual. 3. Several mildly enlarged left hilar or mediastinal lymph nodes which are partially calcified. These are probably benign however a follow-up chest CT in 6 months to ensure stability is recommended. 3. Asymmetric left breast skin thickening. This is nonspecific and may be treatment-related however c orrelation with treatment history is recommended. ACT 112: Negative or not required by law. Electronically signed by: Jasson Duran M.D. 05/24/2020 4:02 PM
--- NOTE | 2020-05-24 17:07 | History & Physical Report ---
Date of Service May 24, 2020 Assessment & Plan (1) Syncope: Symptoms and history most c/w vasovagal etiology. The prodromal dizziness, nausea, etc are reassuring. She denies chest pain, palpitations, or dyspnea around the time of these spells. No seizure activity by history. Has quick regaining of her consciousness. The history does not suggest arrhythmia although it cannot be excluded. CTA chest w/o PE. Plan - * telemetry * carotid duplex study * echocardiogram * serial troponins * hydrate with NS overnight * repeat labs am * cortisol level ordered by ER - will follow this Of note - orthostatic BPs were surprisingly normal in the ER. (2) Hypertension: HOLD CAMPBELL for now. Follow BPs. (3) Hyperlipidemia: Continue statin. (4) Positive Lyme disease serology: h/o Lyme disease in 2019. Now with paresthesias of hands/feet for several weeks, fatigue, etc. IgG +, IgM --. TSH, B12 wnl. No diabetes history. Given the +IgG will presumptively treat for early disseminated Lyme disease with doxy 100mg BID, first dose tonight. Western Blot sent. (5) Essential tremor: Consider BB or primidone or simply refer to neuro as outpatient. (6) Chest heaviness: Vague, present for several days. EKG wnl and w/o ischemic changes. Initial troponin negative. Plan telemetry, serial troponins, and echo in am. Defer on stress test at this time. (7) Anxiety: Seems quite prominent. Patient mentioned the anxiety multiple times during the visit. The anxiety, of course, did not cause her spell today. We could consider buspar prn. History of Present Illness Chief Complaint: passing out spell Primary Care Provider: KAMERON Corcoran 69yo female with history of breast cancer and HTN who presents after having had a syncopal spell on Wednesday. She was raking leaves with her on Wednesday afternoon when the event occurred. She remembers skipping lunch that day. While raking she developed dizziness/lightheadedness, nausea, and then yelled for her . She lost consciousness for 1-2 minutes. laid her to the group gently and went to get a neighbor for help. When she regained consciousness she felt lightheaded still but managed to walk on her own accord into the house. Laid down on couch. She felt cold when she laid down. Never had chest pain or dyspnea. For the remainder of the day she felt tired. On she felt well with no dizziness. Appetite was normal. This am upon awakening she had nausea. Did not have recurrent dizziness. Ate breakfast and nausea went away. However, she felt tired and weak. No cough or sob. She was worried that her "cancer was back" and therefore sought out medical attention. Breast cancer - 2 years ago. Left, s/p lumpectomy. Ovarian cancer - - s/p oophorectomy. ?uterine cancer - s/p KIMBERLY/unilateral oophorectomy - [place], 7-8 years ago. Patient reports another syncopal spell about 3 months ago. That episode was similar to this episode. She had prodromal nausea. Allergies Allergy/AdvReac Type Severity Reaction Status Date / Time ranitidine Allergy Intermediate Rash Verified 05/24/20 13:21 Home Medications Home Medications Medication Instructions Recorded Confirmed Type multivitamin 1 tab PO QPM #0 tab 10/24/14 05/24/20 History lisinopril 10 mg PO QAM 02/01/19 05/24/20 History oxycodone 5 mg PO Q6H PRN #12 tab 06/25/19 05/24/20 Rx aspirin [Aspirin Low Dose] 81 mg PO DAILY 05/24/20 05/24/20 History pravastatin 20 mg PO DAILY 05/24/20 05/24/20 History Past Med/Surg History Medical History (Updated 05/24/20 @ 21:49 by Jose Martin Rodriguez) Anxiety Breast cancer Cancer of urinary tract GERD (gastroesophageal reflux disease) Hyperlipidemia Hypertension Lyme disease 2 episodes; previous episode 2019 Osteoarthritis Tremor HANDS-"REALLY NERVOUS"-NO DX-F/U PCP Surgical History History of hysterectomy AND OTHER OVARY Hx of lumpectomy LEFT-LEFT ARM RESTRICTION Nausea and vomiting after administration of anesthetic agent Ovarian cancer 1970-REMOVAL OVARY Family History Father , age 82; from [place]? Diabetes Heart disease Mother Kidney stones Heart disease Social History Smoking Status: Never smoker Second Hand Exposure: No; Do You Dip or Chew Tobacco: No; Hx Alcohol Use: Yes Alcohol type: wine Hx Substance Use: No Preferred Language: Sami Communication Ability: Effective Visual Impairment: No Limitations Marketing Strategy Analyst Required: No Beliefs That Will Affect Care: None marital status: Current Living Situation: Spouse Current Living Situation Comment: lives in [place] current occupational status: retired current occupation: worked at [employer], [employer] work, other factory work How many Children do You have: 1 Other Information That Helps Us Care for You: No Feels Safe at Home: Yes Safety Concerns: Feels Safe At This Time Assistive Devices: Denture - Upper and Denture - Lower Review of Systems Constitutional: + fatigue; no fever, no chills, no body aches and no anorexia Eyes: no worsening vision Ear, Nose, Mouth, Throat: no nasal congestion, no sore throat and no dysphagia no loss of taste or smell Respiratory: no cough and no dyspnea on exertion Cardiovascular: + syncope; no palpitations and no edema Additional Comments: chest heaviness over the last few days; had episode today; across the chest - goes away on own Musculoskeletal: no joint pain, no swelling and no myalgia Integumentary: no rash Neurologic: + paresthesia (feet, hands - weeks ) and + headache(s) (occasional ) Psychiatric: + depression and + anxiety Endocrine: no diabetes Hematologic / Lymphatic: no easy bleeding and no easy bruising Physical Exam Constitutional: well developed and well nourished; no acute distress and no altered mental status essential tremor of head and arms Eyes: PERRL and EOM intact bilaterally; no nystagmus ENMT: external ear and nose normal, oropharynx normal Neck: trachea midline, no thyromegaly no bruits Respiratory: normal respiratory effort, lungs clear to auscultation Cardiovascular: Rate/Rhythm: regular rate and regular rhythm Heart Sounds: normal S1 and normal S2; no murmur Vessels: posterior tibial pulses present and dorsalis pedis pulses present; no JVD Extremities: no edema Gastrointestinal (Abdomen): normal bowel sounds, soft, nontender, no hepatosplenomegaly Musculoskeletal: no cyanosis or clubbing, extremities motor strength 5/5 Skin: no rashes, warm and dry Neurologic: deep tendon reflexes 2+ bilaterally and moves all extremities; no focal motor deficits Motor/Sensory: + tremor Psychiatric: Orientation: alert and oriented x 3 Affect: + anxious affect Lymphatic: no cervical lymphadenopathy Results & Data Results & Data ([facility]) Vital Signs (Past 12 Hours) Vital Signs Temp Pulse Pulse Resp Resp BP Pulse Ox 05/24/20 15:03 80 22 05/24/20 14:00 73 17 118/63 96 05/24/20 11:19 37.1 C 78 18 148/82 H 96 Pulse Ox 05/24/20 15:03 88 L 05/24/20 14:00 05/24/20 11:19 Laboratory Results Laboratory Results - last 24 hr 05/24/20 05/24/20 05/24/20 12:25 12:25 12:25 WBC 7.40 RBC 4.71 Hgb 14.6 Hct 44.2 MCV 93.8 MCH 31.0 MCHC 33.0 RDW Std Deviation 44.9 RDW Coeff of Miguel 13.0 Plt Count 168 MPV 11.0 H Immature Gran % (Auto) 0.1 Neut % (Auto) 78.8 Lymph % (Auto) 14.1 [place] % (Auto) 5.3 Eos % (Auto) 1.4 Baso % (Auto) 0.3 Neut # (Auto) 5.84 Lymph # (Auto) 1.04 L [place] # (Auto) 0.39 Eos # (Auto) 0.10 Baso # (Auto) 0.02 Immature Gran # (Auto) 0.01 ESR PT 10.2 INR 1.0 Sodium 140 Potassium 4.3 Chloride 107 Carbon Dioxide 27 Anion Gap 7.0 BUN 19 H Creatinine 0.95 Est Cr Clr Drug Dosing 49.1 Est GFR ( Amer) 69.8 Est GFR (Non-Af Amer) 60.3 BUN/Creatinine Ratio 20.1 H Glucose 83 Calcium 10.1 Magnesium 2.2 Total Bilirubin 0.6 AST 17 ALT 27 Alkaline Phosphatase 87 Troponin I < 0.015 C-Reactive Protein NT-Pro-B Natriuret Pep 119 Total Protein 7.9 Albumin 4.2 Globulin 3.7 Albumin/Globulin Ratio 1.1 Lipase 146 Vitamin B12 TSH 2.110 Random Cortisol Urine Color Urine Appearance Urine pH Ur Specific [place] Urine Protein Urine Glucose (UA) Urine Ketones Urine Blood Urine Nitrite Urine Bilirubin Urine Urobilinogen Ur Leukocyte Esterase Urine WBC (Auto) Urine RBC (Auto) U Hyaline Cast (Auto) U Epithel Cells (Auto) Urine Bacteria (Auto) Lyme Disease IgG Ab Lyme IgG (Western Blot) Lyme IgG 18 kDa Band Lyme IgG 23 kDa Band Lyme IgG 28 kDa Band Lyme IgG 30 kDa Band Lyme IgG 39 kDa Band Lyme IgG 41 kDa Band Lyme IgG 45 kDa Band Lyme IgG 58 kDa Band Lyme IgG 66 kDa Band Lyme IgG 93 kDa Band Lyme IgM Ab (WB) Lyme Disease IgM Ab Lyme IgM 23 kDa Band Lyme IgM 39 kDa Band Lyme IgM 41 kDa Band 05/24/20 05/24/20 05/24/20 12:25 12:25 12:25 WBC RBC Hgb Hct MCV MCH MCHC RDW Std Deviation RDW Coeff of Miguel Plt Count MPV Immature Gran % (Auto) Neut % (Auto) Lymph % (Auto) [place] % (Auto) Eos % (Auto) Baso % (Auto) Neut # (Auto) Lymph # (Auto) [place] # (Auto) Eos # (Auto) Baso # (Auto) Immature Gran # (Auto) ESR PT INR Sodium Potassium Chloride Carbon Dioxide Anion Gap BUN Creatinine Est Cr Clr Drug Dosing Est GFR ( Amer) Est GFR (Non-Af Amer) BUN/Creatinine Ratio Glucose Calcium Magnesium Total Bilirubin AST ALT Alkaline Phosphatase Troponin I C-Reactive Protein NT-Pro-B Natriuret Pep Total Protein Albumin Globulin Albumin/Globulin Ratio Lipase Vitamin B12 TSH Random Cortisol Urine Color Yellow Urine Appearance Clear Urine pH 6.5 Ur Specific [place] 1.008 Urine Protein Negative Urine Glucose (UA) Negative Urine Ketones Negative Urine Blood Negative Urine Nitrite Negative Urine Bilirubin Negative Urine Urobilinogen Negative Ur Leukocyte Esterase 1+ H Urine WBC (Auto) 1-5 Urine RBC (Auto) 0-4 U Hyaline Cast (Auto) 0 U Epithel Cells (Auto) 10-20 H Urine Bacteria (Auto) Negative Lyme Disease IgG Ab Positive A Lyme IgG (Western Blot) Pending Lyme IgG 18 kDa Band Pending Lyme IgG 23 kDa Band Pending Lyme IgG 28 kDa Band Pending Lyme IgG 30 kDa Band Pending Lyme IgG 39 kDa Band Pending Lyme IgG 41 kDa Band Pending Lyme IgG 45 kDa Band Pending Lyme IgG 58 kDa Band Pending Lyme IgG 66 kDa Band Pending Lyme IgG 93 kDa Band Pending Lyme IgM Ab (WB) Pending Lyme Disease IgM Ab Negative Lyme IgM 23 kDa Band Pending Lyme IgM 39 kDa Band Pending Lyme IgM 41 kDa Band Pending 05/24/20 05/24/20 05/24/20 18:02 19:10 19:10 WBC RBC Hgb Hct MCV MCH MCHC RDW Std Deviation RDW Coeff of Miguel Plt Count MPV Immature Gran % (Auto) Neut % (Auto) Lymph % (Auto) [place] % (Auto) Eos % (Auto) Baso % (Auto) Neut # (Auto) Lymph # (Auto) [place] # (Auto) Eos # (Auto) Baso # (Auto) Immature Gran # (Auto) ESR 4 PT INR Sodium Potassium Chloride Carbon Dioxide Anion Gap BUN Creatinine Est Cr Clr Drug Dosing Est GFR ( Amer) Est GFR (Non-Af Amer) BUN/Creatinine Ratio Glucose Calcium Magnesium Total Bilirubin AST ALT Alkaline Phosphatase Troponin I < 0.015 C-Reactive Protein < 0.29 NT-Pro-B Natriuret Pep Total Protein Albumin Globulin Albumin/Globulin Ratio Lipase Vitamin B12 TSH Random Cortisol 11.21 Urine Color Urine Appearance Urine pH Ur Specific [place] Urine Protein Urine Glucose (UA) Urine Ketones Urine Blood Urine Nitrite Urine Bilirubin Urine Urobilinogen Ur Leukocyte Esterase Urine WBC (Auto) Urine RBC (Auto) U Hyaline Cast (Auto) U Epithel Cells (Auto) Urine Bacteria (Auto) Lyme Disease IgG Ab Lyme IgG (Western Blot) Lyme IgG 18 kDa Band Lyme IgG 23 kDa Band Lyme IgG 28 kDa Band Lyme IgG 30 kDa Band Lyme IgG 39 kDa Band Lyme IgG 41 kDa Band Lyme IgG 45 kDa Band Lyme IgG 58 kDa Band Lyme IgG 66 kDa Band Lyme IgG 93 kDa Band Lyme IgM Ab (WB) Lyme Disease IgM Ab Lyme IgM 23 kDa Band Lyme IgM 39 kDa Band Lyme IgM 41 kDa Band 05/24/20 19:10 WBC RBC Hgb Hct MCV MCH MCHC RDW Std Deviation RDW Coeff of Miguel Plt Count MPV Immature Gran % (Auto) Neut % (Auto) Lymph % (Auto) [place] % (Auto) Eos % (Auto) Baso % (Auto) Neut # (Auto) Lymph # (Auto) [place] # (Auto) Eos # (Auto) Baso # (Auto) Immature Gran # (Auto) ESR PT INR Sodium Potassium Chloride Carbon Dioxide Anion Gap BUN Creatinine Est Cr Clr Drug Dosing Est GFR ( Amer) Est GFR (Non-Af Amer) BUN/Creatinine Ratio Glucose Calcium Magnesium Total Bilirubin AST ALT Alkaline Phosphatase Troponin I C-Reactive Protein NT-Pro-B Natriuret Pep Total Protein Albumin Globulin Albumin/Globulin Ratio Lipase Vitamin B12 460 TSH Random Cortisol Urine Color Urine Appearance Urine pH Ur Specific [place] Urine Protein Urine Glucose (UA) Urine Ketones Urine Blood Urine Nitrite Urine Bilirubin Urine Urobilinogen Ur Leukocyte Esterase Urine WBC (Auto) Urine RBC (Auto) U Hyaline Cast (Auto) U Epithel Cells (Auto) Urine Bacteria (Auto) Lyme Disease IgG Ab Lyme IgG (Western Blot) Lyme IgG 18 kDa Band Lyme IgG 23 kDa Band Lyme IgG 28 kDa Band Lyme IgG 30 kDa Band Lyme IgG 39 kDa Band Lyme IgG 41 kDa Band Lyme IgG 45 kDa Band Lyme IgG 58 kDa Band Lyme IgG 66 kDa Band Lyme IgG 93 kDa Band Lyme IgM Ab (WB) Lyme Disease IgM Ab Lyme IgM 23 kDa Band Lyme IgM 39 kDa Band Lyme IgM 41 kDa Band Diagnostic Findings 1. CT head - negative for acute process. 2. CTA chest - IMPRESSION: 1. No pulmonary emboli identified. 2. No finding to correspond to the left suprahilar nodule on chest radiograph. This was artifactual. 3. Several mildly enlarged left hilar or mediastinal lymph nodes which are partially calcified. These are probably benign however a follow-up chest CT in 6 months to ensure stability is recommended. 4. Asymmetric left breast skin thickening. This is nonspecific and may be treatment-related however correlation with treatment history is recommended. 3. EKG - my reading - NSR, no ST changes Code Status & VTE Plan Code Status full PG Care Time/CCT Total # of Minutes Spent Total Time Spent with Patient: Total time spent is greater than 50% in coordination of care (as documented) at patient's floor/unit and/or counseling patient: Coding Level of Care Code 02478 OBS Care - Level 3 Diagnoses Syncope R55 Syncope type: unspecified Hypertension I10 Hypertension type: essential hypertension Hyperlipidemia E78.2 Hyperlipidemia type: mixed hyperlipidemia Positive Lyme disease serology R76.8 Essential tremor G25.0 Chest heaviness R07.89 Anxiety F41.9 (1) Hyperlipidemia Hyperlipidemia type: mixed hyperlipidemia Qualified Code(s): E78.2 - Mixed hyperlipidemia (2) Syncope Syncope type: unspecified Qualified Code(s): R55 - Syncope and collapse (3) Hypertension Hypertension type: essential hypertension Qualified Code(s): I10 - Essential (primary) hypertension
--- NOTE | 2020-05-24 18:20 | Electrocardiogram Report ---
Test Reason : Blood Pressure : / mmHG Vent. Rate : 074 BPM Atrial Rate : 074 BPM P-R Int : 142 ms QRS Dur : 070 ms QT Int : 392 ms P-R-T Axes : 050 076 051 degrees QTc Int : 435 ms Normal sinus rhythm Normal ECG When compared with ECG of 01-FEB-2019 11:40, Premature atrial complexes are no longer Present Confirmed by Tapan White ([id number]) on 05/24/2020 6:20:14 PM Referred By: REFERRED SELF Confirmed By:Scottie White
[2020-05-24 19:45] LABS: C Reactive Protein < 0.29 mg/dl (0-0.29); Troponin I < 0.015 ng/ml (0-0.045)
[2020-05-24] MEDS ORDERED: ACETAMINOPHEN 325 MG TAB PO PRN (20:03)
[2020-05-24] MEDS ORDERED: ONDANSETRON INJ 2 MG/ML 2 ML VIAL IV PRN (20:03)
[2020-05-24] MEDS ORDERED: MULTIVITAMIN TAB PO SCH (21:00)
[2020-05-24] MEDS: SODIUM CHLORIDE 0.9% 1000ML 1,000 ML IV SCH (21:29)
[2020-05-24] MEDS: DOXYCYCLINE HYCLATE 100 MG CAP PO SCH (21:29)
[2020-05-25] MEDS: SODIUM CHLORIDE 0.9% 1000ML 1,000 ML IV SCH (07:55)
[2020-05-25] MEDS: DOXYCYCLINE HYCLATE 100 MG CAP PO SCH (08:13)
--- NOTE | 2020-05-25 08:35 | Ultrasound Report ---
ULTRASOUND OF THE CAROTID ARTERIES CLINICAL HISTORY: syncope COMPARISON STUDY: None. TECHNIQUE: Real-time, grayscale, and color Doppler sonography of the carotid arteries was performed. Imaging reviewed in the transverse and longitudinal planes. NASCET criteria was utilized for stenosis calcification. FINDINGS: There is mild atherosclerotic plaque present . The peak systolic velocity within the right internal carotid artery is 111 cm/sec. The systolic velocity ratio of right internal to common carotid artery is 1.2. The peak systolic velocity within the left internal carotid artery is 138 cm/sec. The systolic velocity ratio left internal to common carotid artery is 1.3. Antegrade flow is seen in the vertebral arteries. The external carotid arteries are patent. Blood pressure in the right arm measured 125 mm/Hg. Blood pressure in the left arm measured 131 mm/H g. IMPRESSION: No evidence of hemodynamically significant carotid stenosis. ACT 112: Negative or not required by law. Electronically signed by: Ovidio Denney M.D. 05/25/2020 8:34 AM
[2020-05-25] MEDS ORDERED: PRAVASTATIN SOD 20 MG TAB PO SCH (09:00)
[2020-05-25] MEDS ORDERED: ASPIRIN 81 MG ECTAB PO SCH (09:00)
--- NOTE | 2020-05-25 13:05 | Discharge Summary ---
Date of Service May 25, 2020 Admission HPI Per Admitting Provider 69yo female with history of breast cancer and HTN who presents after having had a syncopal spell on Wednesday. She was raking leaves with her on Wednesday afternoon when the event occurred. She remembers skipping lunch that day. While raking she developed dizziness/lightheadedness, nausea, and then yelled for her . She lost consciousness for 1-2 minutes. laid her to the group gently and went to get a neighbor for help. When she regained consciousness she felt lightheaded still but managed to walk on her own accord into the house. Laid down on couch. She felt cold when she laid down. Never had chest pain or dyspnea. For the remainder of the day she felt tired. On she felt well with no dizziness. Appetite was normal. This am upon awakening she had nausea. Did not have recurrent dizziness. Ate breakfast and nausea went away. However, she felt tired and weak. No cough or sob. She was worried that her "cancer was back" and therefore sought out medical attention. Breast cancer - 2 years ago. Left, s/p lumpectomy. Ovarian cancer - 1970s - s/p oophorectomy. ?uterine cancer - s/p KIMBERLY/unilateral oophorectomy - [place], 7-8 years ago. Patient reports another syncopal spell about 3 months ago. That episode was similar to this episode. She had prodromal nausea. Discharge Data Allergies Allergy/AdvReac Type Severity Reaction Status Date / Time ranitidine Allergy Intermediate Rash Verified 05/24/20 13:21 Consultations 05/24/20 16:29 ED Decision to Admit Stat Ordered Studies 05/24/20 12:32 CT head/brain wo con Stat 05/24/20 15:09 CT angio chest PE protocol Stat 05/24/20 20:03 US carotid doppler BI Routine Hospital Course (1) Syncope: Symptoms and history most c/w vasovagal etiology. The prodromal dizziness, nausea, etc are reassuring. She denies chest pain, palpitations, or dyspnea around the time of these spells. No seizure activity by history. Has quick regaining of her consciousness. The history does not suggest arrhythmia although it cannot be excluded. CTA chest w/o PE. Plan - * telemetry * carotid duplex study * echocardiogram * serial troponins * hydrate with NS overnight * repeat labs am * cortisol level ordered by ER - will follow this Of note - orthostatic BPs were surprisingly normal in the ER. (2) Hypertension: HOLD CAMPBELL for now. Follow BPs. (3) Hyperlipidemia: Continue statin. (4) Positive Lyme disease serology: h/o Lyme disease in 2019. Now with paresthesias of hands/feet for several weeks, fatigue, etc. IgG +, IgM --. TSH, B12 wnl. No diabetes history. Given the +IgG will presumptively treat for early disseminated Lyme disease with doxy 100mg BID, first dose tonight. Western Blot sent. (5) Essential tremor: Consider BB or primidone or simply refer to neuro as outpatient. (6) Chest heaviness: Vague, present for several days. EKG wnl and w/o ischemic changes. Initial troponin negative. Plan telemetry, serial troponins, and echo in am. Defer on stress test at this time. (7) Anxiety: Seems quite prominent. Patient mentioned the anxiety multiple times during the visit. The anxiety, of course, did not cause her spell today. We could consider buspar prn. Discharge Plan Discharge Items Patient Disposition: Home - Self-Care Reason For Visit: SYNCOPE (Passing out spell) Discharge Diagnosis: 1. syncope - suspect it was due to dehydration * heart ultrasound (echocardiogram) showed normal heart function * telemetry heart monitoring did not show abnormal heart rhythms * blood work showed no evidence of heart attack * CAT scan of lungs showed no blood clots or pneumonia * vitamin B12 level was normal * thyroid level was normal * carotid ultrasound showed normal blood flow to the brain * CAT scan of the brain was normal 2. positive lyme screening test - significance uncertain; awaiting confirmatory testing 3. numbness of hands and feet - if your lyme testing is truly positive lyme disease could cause the numbness 4. chest heaviness - no evidence of blood clots or heart attack; exact cause uncertain. Possibilities - heartburn, anxiety, muscle pain Activity: As commented below Activity Comment: take it easy for 1-2 days, then gradually increase activities Driving/Machine Use: Resume 1 day after discharge Non-emergency contact: Primary Care Provider Call non-emergency contact if: you have any medication questions and your symptoms worsen Follow-up/Referrals: Elis Estrada CRNP [Primary Care Provider] - (see Ms Natalie within 5 days ) Diet: Regular Addtl Attending Provider Instructions: You were admitted to the hospital because of an episode of passing out at your home. You underwent extensive testing looking for the cause. We did not find heart attack, blood clots in the lungs, pneumonia, abnormal heart rhythms, abnormal heart function, poor blood flow in the neck arteries, etc. Your blood work suggested mild dehydration for which you received IV fluids. Your blood work was otherwise normal except for a lyme disease screening test which returned positive. The significance of this is uncertain. If you were to experience recurrent episodes of passing out you would need to see a machine setter sheet metal with [facility] for additional testing. Recommendations - 1. please HOLD your lisinopril for now. This is your blood pressure pill. Your blood pressures have been acceptable WITHOUT THE PILL. Worst case scenario is that it has to be restarted at a later date if your blood pressures rise. 2. please drink 20 ounces of gatorade or powerade each day for the next 3 days. 3. please take omeprazole 40mg once daily for 2 weeks in the event your stomach is irritated. The nausea you have been getting could be from gastritis/upset stomach. 4. while waiting for your confirmatory lyme testing please take doxycycline 100mg twice daily for 13 more days. Note that doxycycline can cause heartburn. It can also cause a rash if you go out in the sun while taking the medication. Thus, please cover up over the next 2 weeks. I will call you with your lyme test results. 5. your CAT scan showed some skin thickening of the left breast. This could simply be scar tissue from your prior surgery. However, please be sure to get a mammogram soon. 6. if you are interested in medication for your tremors please ask your family doctor for a referral to [facility]. They can help you with this. 7. continue to mask when you leave your home. 8. get a flu shot this fall. 9. continue to socially distance to prevent covid-19 infection. Follow-up - see separate section Return to [facility] if - * you have fever over 100 degrees * you have recurrent episodes of passing out * you have shortness of breath and/or chest pain * any other concerns Pending Studies at Discharge: Yes Studies:: confirmatory Lyme Disease testing Stand-Alone Forms: [facility], Smoking Cessation Medications and DC Order Prescriptions: New doxycycline hyclate 100 mg Capsule 100 mg PO BID 13 Days Qty: 26 RF: 0 omeprazole 40 mg capsule,delayed release(DR/EC) 40 mg PO DAILY Qty: 14 RF: 0 ondansetron 4 mg tablet,disintegrating 4 mg PO Q6H PRN (Reason: nausea and vomiting) Qty: 10 RF: 0 Continued multivitamin Tablet 1 tab PO QPM Qty: 0 RF: 0 aspirin [Aspirin Low Dose] 81 mg Tablet,Delayed Release (Dr/Ec) 81 mg PO DAILY RF: 0 pravastatin 20 mg tablet 20 mg PO DAILY RF: 0 Discontinued lisinopril 10 mg tablet 10 mg PO QAM RF: 0 oxycodone 5 mg tablet 5 mg PO Q6H PRN (Reason: pain) Qty: 12 RF: 0 Discharge Orders: Discharge Order (Routine); Ordered 05/25/20 Ordered By: Jose Martin Rodriguez Admission Data Admit Date/Time: 05/24/20 17:07 Attending Provider: Jose Martin Rodriguez Admit Provider: Jose Martin Rodriguez Primary Care Provider: Elis Estrada Other Providers: Juan R Encarnacion Coding Diagnoses Syncope R55 Syncope type: unspecified Hypertension I10 Hypertension type: essential hypertension Hyperlipidemia E78.2 Hyperlipidemia type: mixed hyperlipidemia Positive Lyme disease serology R76.8 Essential tremor G25.0 Chest heaviness R07.89 Anxiety F41.9
[2020-05-28 01:45] LABS: 18KDIGG Band REACTIVE; 23KDIGG Band NON-REACTIVE; 23KDIGM Band NON-REACTIVE; 28KDIGG Band NON-REACTIVE; 30KDIGG Band NON-REACTIVE; 39KDIGG Band REACTIVE; 39KDIGM Band NON-REACTIVE; 41KDIGG Band REACTIVE; 41KDIGM Band NON-REACTIVE; 45KDIGG Band NON-REACTIVE; 58KDIGG Band REACTIVE; 66KDIGG Band NON-REACTIVE; 93KDIGG Band NON-REACTIVE; Lyme Antibodies, WB IgG NEGATIVE (NEGATIVE); Lyme Antibodies, WB IgM NEGATIVE (NEGATIVE)
== END 2020-05-25 14:53 | disposition home or self-care (01) ==
LOC: 2N 11:13 → ED 11:13 → 2N 19:50

== ENCOUNTER 2025-02-07 21:50 | Inpatient (IN) ==
[2025-02-07] MEDS: NOREPINEPHRINE/D5W 4 MG/250 ML PLCT IV SCH (22:05)
[2025-02-07] MEDS ORDERED: STAT IV Infusion **Titration per Protocol STA (22:24)
[2025-02-07] MEDS: SODIUM CHLORIDE 0.9% 1,000 ML IV STA (22:26)
[2025-02-07 22:35] LABS: Hematocrit (blood only) 32.4 % (37.0-47.0); Hemoglobin 9.7 g/dl (12.0-16.0); Mean Corpuscular Hemoglobin 35.0 pg (25.0-34.0); Mean Corpuscular Volume 117.0 fL (80.0-100.0); Platelet Count 103 K/uL (130-400); RDW Standard Deviation 57.1 fL (36.4-46.3); Red Blood Count 2.77 M/uL (4.20-5.40); White Blood Count 5.00 K/ul (4.8-10.8)
[2025-02-07] MEDS: NOREPINEPHRINE/D5W 4 MG/250 ML IV ONE (22:38)
[2025-02-07 22:50] LABS: iSTAT Art Bld Gas Base Excess -25.0 meg/L (-9-1.8)
[2025-02-07 22:55] LABS: Immature Granulocytes # (auto) 0.43 K/uL (0.01-0.20); Immature Granulocytes % (auto) 8.6 %; Polychromasia 1+
[2025-02-07 23:22] LABS: Alanine Aminotransferase 208.0 U/L (7-52); Albumin Globulin Ratio 1.9 (0.9-2); Alkaline Phosphatase 53.0 U/L (34-104); Anion Gap 19.0 (3-11); Bilirubin,Total 0.3 mg/dl (0.2-1.0); Blood Urea Nitrogen 23.0 mg/dl (6-23); Calcium 8.6 mg/dl (8.6-10.3); Carbon Dioxide 11.0 mmol/L (21-32); Chloride 111.0 mmol/L (98-107); Creatinine Clr Calc Pharmacy 33.0 ml/min; Globulin 1.6 gm/dl (2.5-4.0); Lipase 110.0 U/L (11-82); Potassium 4.7 mmol/L (3.5-5.1); Sodium 141.0 mmol/L (136-145); Total Protein 4.7 gm/dl (6.0-8.3)
[2025-02-07 23:35] LABS: INR 1.1 (0.9-1.1); Prothrombin Time 11.8 Seconds (9.0-12.0)
[2025-02-07 23:39] LABS: Partial Thromboplastin Time 81 Seconds (21-31)
--- NOTE | 2025-02-08 00:13 | XRay Report ---
Exam(s): XR CXR 1 VIEW EXAM: XR Chest, 1 View CLINICAL HISTORY: Reason for exam: Chest pain, nonspecific. TECHNIQUE: Frontal view of the chest. COMPARISON: No relevant prior studies available. FINDINGS: Lungs: See below. Pleural space: Unremarkable. No pneumothorax. Heart: Unremarkable. No cardiomegaly. Mediastinum: Unremarkable. Normal mediastinal contour. Bones/joints: Unremarkable. No acute fracture. Tubes, lines and devices: The endotracheal tube is seen with its tip extending into the right mainstem bronchus. This should be pulled back at least 5 cm. Patchy right lung interstitial infiltrate. IMPRESSION: In properly positioned endotracheal tube in the right mainstem bronchus. This should be pulled back by 5 cm. Multifocal pneumonia Communications: Call Doctor Misplaced tube or line, life-threatening Electronically signed by: Hai Wilson MD 02/08/25 00:12 AM
[2025-02-08] MEDS: SODIUM BICARB 8.4% INJ 50 MEQ/50 ML SYR IV STA ×3 (00:20→00:35)
--- NOTE | 2025-02-08 00:22 | Emergency Department Note ---
Impression & Plan Cardiac arrest, Non-ST elevation [place] (NSTEMI), Respiratory failure, Acidosis, lactic ED Provider Note Diagnosis: Postcardiac arrest Disposition: Admission CHIEF COMPLAINT: Postcardiac HPI: Patient 74-year-old female presenting from home postcardiac arrest. Patient's states that they were outside watering plants and she went to the other side of the house. He states that he did not hear from her so he went to go check on her and found her facedown on the ground. He turned her over she was unresponsive and he started CPR. He called out for help and neighbors called an ambulance. He states that he got tired from performing the CPR and had to pause because he felt like he was get a pass out. Neighbor started to take over CPR. EMS arrived and found the patient in cardiac arrest and continued CPR and ALS interventions. Patient was intubated in the field with a 7.0 ET tube. Patient did not receive any shocks and did not have shockable rhythms en route to the hospital. Patient's rhythm reportedly was PEA or asystole prior to obtaining ROSC. Patient upon arrival in the emergency room has no purposeful movements, intubated with equal breath sounds bilaterally. Patient hypotensive. Patient's pupils dilated and nonreactive. PAST MEDICAL HISTORY: See Below PAST SURGICAL HISTORY: See Below SOCIAL HISTORY: See Below HOME MEDICATIONS: See Below ALLERGIES: See Below VITALS: See Below PHYSICAL EXAMINATION: GENERAL: Severe distress EYE EXAM: Pupils 8 mm dilated and fixed OROPHARYNX: Moist mucus membranes. Grossly normal dentition. NECK: Supple, LUNGS: Breath sounds present bilaterally with [id number] respirations HEART: NSR ABDOMEN: Abdomen soft, SKIN: Cool to touch UPPER EXTREMITIES: Upper extremities are grossly normal LOWER EXTREMITIES: Grossly normal, no edema. NEURO EXAM: Pupils fixed and dilated, no response to painful stimuli PSYCH: Not responsive MEDICAL DECISION MAKING: History obtained from: EMS, family ER Course: Patient 74-year-old female presenting postcardiac arrest. Patient had no shockable rhythms. Patient required multiple rounds of epinephrine and a dose of push dose epi after ROSC was obtained. Patient arrives in the emergency room intubated with a 7.0 ET tube. Patient's pupils fixed and dilated. Patient has no neurologic response. Patient's EKG showed concern for left main syndrome. Patient's case discussed with cardiology. Due to patient's lactate above 10 prolonged downtime not a good candidate for cardiac catheterization recommends medical management. Patient lactate elevated most likely due to the 40 to 50 minutes of downtime prior to ROSC being obtained. Will allow hospitalist to decide if broad-spectrum antibiotics are necessary. Patient's temperature was 33 C upon arrival. Discussion with hospitalist team to allow either cooling if that is still our protocol here versus rewarming if we no longer perform cooling postarrest. Patient will have CT scans of head chest and abdomen pelvis on the way up to the intensive care unit. Patient required increasing doses of peripheral Levophed and a central line was performed. Patient's consented and understood risk-benefit for this procedure. Please see consent with the chart. Patient tolerated procedure well and postprocedure x-ray shows good placement no pneumothorax. Patient was not started on heparin drip in the emergency room due to not having a CT scan of the head yet to prove no intracranial hemorrhage before it was started. Labs (independently interpreted) are significant for: Lactic acidosis, Imaging results (independently interpreted): First chest x-ray with ET tube right mainstem, second chest x-ray ET tube in good position, central line in good position, OG tube in good position EKG interpretation (independently interpreted): Sinus rhythm ST elevation in aVR with depressions diffusely through lateral leads concerning for left main syndrome Medications given: Push dose epi, Levophed Consultants: Dr. Parker of Cardiology, discussed patient's presentation EKG findings of potential left main syndrome and current presentation. Does not recommend cardiac catheterization recommends medical management. Discussion with hospitalist team accepts to their service further treatment and evaluation CODE STATUS; full code discussed with Triage Nursing notes reviewed and agree them. Vital Signs: reviewed and remarkable for: Hypotension Critical care time: 80 mins, this does not include time for procedures Central Venous Catheter Indication: Postcardiac arrest, hypotension Catheter type: Triple-lumen catheter Location: Right IJ Written consent was obtained after the risks and benefits were explained, including but not limited to pneumothorax, hemothorax, vessel injury, bleeding, scarring, infection, pain, and bone/joint/nerve damage. At this time, the risks of the procedure are less than the risks of NOT performing the procedure. A time out was taken and the correct patient and site identified. The patient was placed in the reverse Trendelenburg position and the skin was prepped in the standard fashion with chlorhexidine and full sterile drapes applied. The proper landmarks were identified with ultrasound,and the needle was inserted through the skin in the standard fashion. The needle was carefully advanced into blood vessel lumen under ultrasound guidance. The guidewire was placed uneventfully. The vessel is dilated and the catheter was placed. It was sutured into position. There was good blood return from all ports. The patient tolerated the procedure well and there were no complications. Post procedure x-ray was normal. 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 Recurrent breast cancer Arthritis Breast cancer, left Dyspnea Syncope (Acute) Anxiety (Acute) Nephrolithiasis Breast cancer (Acute 08/02/14) "Abnormal left breast mammogram 07/04/2014 Left breast mammogram 07/17/2014 Status post stereotactic biopsy 08/02/2014 DCIS Negative lymphoscintigraphy Status post partial mastectomy and sentinel lymph node biopsy 10/16/2014 Staged [id number] Status post completion of radiation therapy 12/21/2014 utilizing accelerated partial breast treatment received 3850 cGy" On 01/29/15 16:03 Nalini Matthew wrote "Abnormal left breast mammogram 07/04/2014 Left breast mammogram 07/17/2014 Status post stereotactic biopsy 08/02/2014 DCIS Negative lymphoscintigraphy Status post partial mastectomy and sentinel lymph node biopsy 10/16/2014 Staged [id number] Status post completion of radiation therapy 12/21/2014 utilizing accelerated partial breast treatment received 3850 cGy" On 01/29/15 14:39 Nalini Matthew wrote "Abnormal left breast mammogram 07/04/2014 Left breast mammogram 07/17/2014 Status post stereotactic biopsy 08/02/2014 DCIS Negative lymphoscintigraphy Status post partial mastectomy and sentinel lymph node biopsy 10/16/2014 Staged [id number] " On 11/01/14 10:46 Nalini Matthew wrote "Abnormal left breast mammogram 07/04/2014 Left breast mammogram 07/17/2014 Status post stereotactic biopsy 08/02/2014 DCIS Negative lymphoscintigraphy Status post partial mastectomy and sentinel lymph node biopsy 10/16/2014 Staged [id number] Oncotype DX pending" On 11/01/14 10:41 Nalini Matthew wrote "Abnormal left breast mammogram 07/04/2014 Left breast mammogram 07/17/2014 Status post stereotactic biopsy 08/02/2014 DCIS Negative lymphoscintigraphy Status post partial mastectomy and sentinel lymph node biopsy 10/16/2014 Staged [id number] Oncotype DX pending" GERD (gastroesophageal reflux disease) 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 urinary tract Medical History (Updated 02/08/25 @ 00:21 by Enrrique Jackson DO) History of anesthesia reaction throwing up Chest heaviness Essential tremor Positive Lyme disease serology Syncope Lyme disease 2 episodes; previous episode 2019 Osteoarthritis Anxiety Tremor HANDS-"REALLY NERVOUS"-NO DX-F/U PCP Hyperlipidemia Hypertension Breast cancer Surgical History Nausea and vomiting after administration of anesthetic agent Hx of lumpectomy LEFT-LEFT ARM RESTRICTION History of hysterectomy AND OTHER OVARY Family History Father Diabetes Heart disease Mother Kidney stones Brother Cancer Social History Smoking Status: Unknown if ever smoked Second Hand Exposure: No; Do You Dip or Chew Tobacco: No; Hx Alcohol Use: Yes Alcohol type: wine Hx Substance Use: No Preferred Language: Omani Communication Ability: Effective Visual Impairment: No Limitations Secured Entrance Monitor Required: No Beliefs That Will Affect Care: None marital status: Current Living Situation: Spouse Current Living Situation Comment: lives in [place] current occupational status: retired current occupation: worked at [employer], [employer] work, other factory work How many Children do You have: 1 Feels Safe at Home: Yes during the past year weight has: decreased > 10 lbs Assistive Devices: None Allergies Allergies Allergy/AdvReac Type Severity Reaction Status Date / Time ranitidine Allergy Intermediate Rash Verified 01/21/23 13:14 Home Meds Home Medications Medication Instructions Recorded Confirmed multivitamin 1 tab PO QPM #0 tabs 10/24/14 02/07/25 aspirin 81 mg tablet,delayed 81 mg PO DAILY 05/24/20 02/07/25 release (Kristin Low Dose Aspirin) pravastatin 20 mg tablet 20 mg PO DAILY 05/24/20 02/07/25 Results & Data (ED) Vital Signs Vital Signs - 24 hr 02/07/25 21:57 02/07/25 22:00 02/07/25 22:07 Pulse Rate 66 63 68 Pulse Rate [Apical] Pulse Rate from SpO2 Sensor Respiratory Rate 20 25 H Respiratory Effort / Characteristics Respiratory Depth Blood Pressure Blood Pressure [Right Arm] Blood Pressure Mean Blood Pressure Mean [Right Arm] Pulse Oximetry 90 99 Oxygen Delivery Method Mechanical Vent Fraction of Inspired Oxygen 100 Sepsis Recent Fever Within 48 Hours No Sepsis New/Unexplained Change in Mental Status No Sepsis Action Taken by Nursing No Action Required End-Tidal CO2 02/07/25 22:13 02/07/25 22:18 02/07/25 22:18 Pulse Rate Pulse Rate [Apical] Pulse Rate from SpO2 Sensor Respiratory Rate Respiratory Effort / Characteristics Respiratory Depth Blood Pressure 57/34 L 57/34 L Blood Pressure [Right Arm] Blood Pressure Mean 40 40 Blood Pressure Mean [Right Arm] Pulse Oximetry Oxygen Delivery Method Mechanical Vent Fraction of Inspired Oxygen Sepsis Recent Fever Within 48 Hours Sepsis New/Unexplained Change in Mental Status Sepsis Action Taken by Nursing End-Tidal CO2 02/07/25 22:18 02/07/25 22:20 02/07/25 22:21 Pulse Rate 65 61 Pulse Rate [Apical] Pulse Rate from SpO2 Sensor 64 62 Respiratory Rate 20 20 Respiratory Effort / Characteristics Respiratory Depth Blood Pressure 58/33 L Blood Pressure [Right Arm] Blood Pressure Mean 47 Blood Pressure Mean [Right Arm] Pulse Oximetry 99 98 Oxygen Delivery Method Fraction of Inspired Oxygen Sepsis Recent Fever Within 48 Hours Sepsis New/Unexplained Change in Mental Status Sepsis Action Taken by Nursing End-Tidal CO2 26 25 02/07/25 22:22 02/07/25 22:22 02/07/25 22:24 Pulse Rate 64 Pulse Rate [Apical] Pulse Rate from SpO2 Sensor 64 Respiratory Rate 20 Respiratory Effort / Characteristics Respiratory Depth Blood Pressure 55/35 L 55/35 L Blood Pressure [Right Arm] Blood Pressure Mean 43 43 Blood Pressure Mean [Right Arm] Pulse Oximetry 98 Oxygen Delivery Method Fraction of Inspired Oxygen Sepsis Recent Fever Within 48 Hours Sepsis New/Unexplained Change in Mental Status Sepsis Action Taken by Nursing End-Tidal CO2 25 02/07/25 22:32 02/07/25 22:41 02/07/25 22:46 Pulse Rate 71 Pulse Rate [Apical] Pulse Rate from SpO2 Sensor Respiratory Rate Respiratory Effort / Characteristics Respiratory Depth Blood Pressure 74/45 L Blood Pressure [Right Arm] Blood Pressure Mean 53 Blood Pressure Mean [Right Arm] Pulse Oximetry 97 Oxygen Delivery Method Mechanical Vent Fraction of Inspired Oxygen Sepsis Recent Fever Within 48 Hours Sepsis New/Unexplained Change in Mental Status Sepsis Action Taken by Nursing End-Tidal CO2 02/07/25 22:50 02/07/25 22:52 02/07/25 22:52 Pulse Rate Pulse Rate [Apical] Pulse Rate from SpO2 Sensor Respiratory Rate Respiratory Effort / Characteristics Respiratory Depth Blood Pressure 89/53 L 89/50 L 89/50 L Blood Pressure [Right Arm] Blood Pressure Mean 61 59 59 Blood Pressure Mean [Right Arm] Pulse Oximetry Oxygen Delivery Method Fraction of Inspired Oxygen Sepsis Recent Fever Within 48 Hours Sepsis New/Unexplained Change in Mental Status Sepsis Action Taken by Nursing End-Tidal CO2 02/07/25 23:12 02/07/25 23:44 02/07/25 23:50 Pulse Rate 82 Pulse Rate [Apical] 83 84 Pulse Rate from SpO2 Sensor Respiratory Rate 22 18 20 Respiratory Effort / Characteristics Non-Labored Spontaneous Respiratory Depth Normal Blood Pressure Blood Pressure [Right Arm] 90/51 L 76/27 L Blood Pressure Mean Blood Pressure Mean [Right Arm] 64 43 Pulse Oximetry 86 L 97 89 L Oxygen Delivery Method Mechanical Vent Mechanical Vent Fraction of Inspired Oxygen 100 Sepsis Recent Fever Within 48 Hours Sepsis New/Unexplained Change in Mental Status Sepsis Action Taken by Nursing End-Tidal CO2 02/08/25 00:00 Pulse Rate 85 Pulse Rate [Apical] Pulse Rate from SpO2 Sensor Respiratory Rate 16 Respiratory Effort / Characteristics Respiratory Depth Blood Pressure 84/65 L Blood Pressure [Right Arm] Blood Pressure Mean 70 Blood Pressure Mean [Right Arm] Pulse Oximetry 97 Oxygen Delivery Method Mechanical Vent Fraction of Inspired Oxygen Sepsis Recent Fever Within 48 Hours Sepsis New/Unexplained Change in Mental Status Sepsis Action Taken by Nursing End-Tidal CO2 16 Laboratory Data 02/07/25 22:08 02/07/25 22:08 Lab Results 02/07/25 02/07/25 02/07/25 Range/Units 21:58 22:08 22:23 WBC 5.00 (4.8-10.8) K/ul RBC 2.77 L (4.20-5.40) M/uL Hgb 9.7 L (12.0-16.0) g/dl POC Hgb (12.0-16.0) g/dl Hct 32.4 L (37.0-47.0) % POC Hct (37-47) % MCV 117.0 H (80.0-100.0) fL MCH 35.0 H (25.0-34.0) pg MCHC 29.9 L (32.0-36.0) g/dL RDW Std Deviation 57.1 H (36.4-46.3) fL RDW Coeff of Miguel 13.4 (11.5-14.5) % Plt Count 103 L (130-400) K/uL MPV 10.1 (9.4-12.4) fL Immature Gran % (Auto) 8.6 % Neut % (Auto) 41.0 % Lymph % (Auto) 45.6 % Union % (Auto) 3.2 % Eos % (Auto) 1.0 % Baso % (Auto) 0.6 % Neut # (Auto) 2.05 (1.40-6.50) K/uL Lymph # (Auto) 2.28 (1.20-3.40) K/uL Union # (Auto) 0.16 (0.11-0.59) K/uL Eos # (Auto) 0.05 (0.00-0.50) K/uL Baso # (Auto) 0.03 (0.00-0.20) K/uL Immature Gran # (Auto) 0.43 H (0.01-0.20) K/uL Absolute Nucleated RBC 0.04 (0.00-0.12) K/uL Nucleated RBC % (auto) 0.8 % Polychromasia 1+ PT 11.8 (9.0-12.0) Seconds INR 1.1 (0.9-1.1) APTT 81 H* (21-31) Seconds PTT Ratio 3.0 POC pH (7.35-7.45) POC pCO2 (35-46) mmHg POC pO2 (80-95) mmHg POC HCO3 (19-24) dilia/L POC Total CO2 (24-31) mmol/L POC Base Excess (-9-1.8) dilia/L POC ABG O2 Sat (90-95) % POC Sodium (135-144) mmol/L Sodium 141 (136-145) mmol/L POC Potassium (3.3-5.0) mmol/L Potassium 4.7 (3.5-5.1) mmol/L Chloride 111 H (98-107) mmol/L Carbon Dioxide 11 L (21-32) mmol/L Anion Gap 19 H (3-11) BUN 23 (6-23) mg/dl Creatinine 1.30 H (0.6-1.2) mg/dl Est Cr Clr Drug Dosing 33.0 ml/min eGFR 42.62 BUN/Creatinine Ratio 17.7 (10-20) Glucose 311 H* (70-99(Fasting)) mg/dl POC Glucose 280 H (70-99) mg/dl Lactate 13.6 H* (0.4-2.0) mmol/L Calcium 8.6 (8.6-10.3) mg/dl Total Bilirubin 0.3 (0.2-1.0) mg/dl AST 191 H (13-39) U/L ALT 208 H (7-52) U/L Alkaline Phosphatase 53 (34-104) U/L Troponin I High Sens 178.8 H* (0-14) pg/ml Total Protein 4.7 L (6.0-8.3) gm/dl Albumin 3.1 L (3.4-5.0) gm/dl Globulin 1.6 L (2.5-4.0) gm/dl Albumin/Globulin Ratio 1.9 (0.9-2) Lipase 110 H (11-82) U/L 02/07/25 02/07/25 Range/Units 22:24 22:36 WBC (4.8-10.8) K/ul RBC (4.20-5.40) M/uL Hgb (12.0-16.0) g/dl POC Hgb 7.8 L (12.0-16.0) g/dl Hct (37.0-47.0) % POC Hct 23 L (37-47) % MCV (80.0-100.0) fL MCH (25.0-34.0) pg MCHC (32.0-36.0) g/dL RDW Std Deviation (36.4-46.3) fL RDW Coeff of Miguel (11.5-14.5) % Plt Count (130-400) K/uL MPV (9.4-12.4) fL Immature Gran % (Auto) % Neut % (Auto) % Lymph % (Auto) % Union % (Auto) % Eos % (Auto) % Baso % (Auto) % Neut # (Auto) (1.40-6.50) K/uL Lymph # (Auto) (1.20-3.40) K/uL Union # (Auto) (0.11-0.59) K/uL Eos # (Auto) (0.00-0.50) K/uL Baso # (Auto) (0.00-0.20) K/uL Immature Gran # (Auto) (0.01-0.20) K/uL Absolute Nucleated RBC (0.00-0.12) K/uL Nucleated RBC % (auto) % Polychromasia PT (9.0-12.0) Seconds INR (0.9-1.1) APTT (21-31) Seconds PTT Ratio POC pH 6.89 L* (7.35-7.45) POC pCO2 41 (35-46) mmHg POC pO2 183 H (80-95) mmHg POC HCO3 8 L (19-24) dilia/L POC Total CO2 9 L* (24-31) mmol/L POC Base Excess -25.0 L (-9-1.8) dilia/L POC ABG O2 Sat 98.0 H (90-95) % POC Sodium 139 (135-144) mmol/L Sodium (136-145) mmol/L POC Potassium 4.5 (3.3-5.0) mmol/L Potassium (3.5-5.1) mmol/L Chloride (98-107) mmol/L Carbon Dioxide (21-32) mmol/L Anion Gap (3-11) BUN (6-23) mg/dl Creatinine (0.6-1.2) mg/dl Est Cr Clr Drug Dosing ml/min eGFR BUN/Creatinine Ratio (10-20) Glucose (70-99(Fasting)) mg/dl POC Glucose (70-99) mg/dl Lactate Cancelled (0.4-2.0) mmol/L Calcium (8.6-10.3) mg/dl Total Bilirubin (0.2-1.0) mg/dl AST (13-39) U/L ALT (7-52) U/L Alkaline Phosphatase (34-104) U/L Troponin I High Sens (0-14) pg/ml Total Protein (6.0-8.3) gm/dl Albumin (3.4-5.0) gm/dl Globulin (2.5-4.0) gm/dl Albumin/Globulin Ratio (0.9-2) Lipase (11-82) U/L Administered Medications Norepinephrine Bitartrate (Levophed/D5w) 4 mg in 250 mls @ 12.563 mls/hr IV .[id number] [facility]; Protocol Stop: 03/09/25 22:29 Last Titration: 02/07/25 23:52 Dose: 0.42 mcg/kg/min, 105.5 mls/hr Documented By: KMF Co-signed By: ABDIAZIZ Titration: 02/07/25 23:43 Dose: 0.4 mcg/kg/min, 100.5 mls/hr Documented By: KMF Co-signed By: MED Titration: 02/07/25 23:42 Dose: 0.34 mcg/kg/min, 85.4 mls/hr Documented By: KMF Co-signed By: MED Titration: 02/07/25 23:33 Dose: 0.32 mcg/kg/min, 80.4 mls/hr Documented By: KMF Co-signed By: MJJ Titration: 02/07/25 22:47 Dose: 0.3 mcg/kg/min, 75.4 mls/hr Documented By: KMS Co-signed By: MED Titration: 02/07/25 22:46 Dose: 0.26 mcg/kg/min, 65.3 mls/hr Documented By: KMS Co-signed By: MED Titration: 02/07/25 22:38 Dose: 0.24 mcg/kg/min, 60.3 mls/hr Documented By: MED Co-signed By: KMS Titration: 02/07/25 22:34 Dose: 0.2 mcg/kg/min, 50.3 mls/hr Documented By: MED Co-signed By: KMS Titration: 02/07/25 22:29 Dose: 0.14 mcg/kg/min, 35.2 mls/hr Documented By: MED Co-signed By: MAURO Titration: 02/07/25 22:24 Dose: 0.12 mcg/kg/min, 30.2 mls/hr Documented By: MED Co-signed By: KMS Titration: 02/07/25 22:19 Dose: 0.1 mcg/kg/min, 25.1 mls/hr Documented By: MED Co-signed By: JEWEL Titration: 02/07/25 22:18 Dose: 0.07 mcg/kg/min, 17.6 mls/hr Documented By: MED Co-signed By: SM Admin: 02/07/25 22:05 Dose: 0.05 mcg/kg/min, 12.6 mls/hr Documented By: MED Co-signed By: CDM Discontinued Medications Sodium Chloride (Nss) 1,000 mls @ 999 mls/hr IV .Q1H1M STA Stop: 02/07/25 23:22 Last Infusion: 02/07/25 23:30 Dose: Infused Documented By: Admin: 02/07/25 22:26 Dose: 999 mls/hr Documented By: MED Norepinephrine Bitartrate (Norepinephrine/D5w 4 Mg/250 Ml) Confirm Administered Dose 4 mg IV .STK-MED ONE Stop: 02/07/25 22:02 Last Admin: 02/07/25 22:38 Dose: Not Given Documented By: MED Discharge Plan Visit Data Chief Complaint: Cardiac Arrest/CPR ED Provider: Enrrique Jackson Discharge Problem: Cardiac arrest, Non-ST elevation [place] (NSTEMI), Respiratory failure, Acidosis, lactic Condition: Critical Forms Stand Alone Forms: My [facility] [employer] Prescriptions Prescriptions: No Action multivitamin Tablet 1 tab PO QPM Qty: 0 aspirin [Kristin Low Dose Aspirin] 81 mg Tablet,Delayed Release (Dr/Ec) 81 mg PO DAILY pravastatin 20 mg tablet 20 mg PO DAILY Referrals Referrals: Reji Gray, PA-C [Primary Care Provider] -
[2025-02-08] MEDS ORDERED: STAT IV Infusion **Titration per Protocol STA ×4 (00:27→01:34)
[2025-02-08] MEDS: SODIUM BICARB 8.4% INJ 50 MEQ/50 ML SYR IV ONE ×2 (00:28→02:48)
[2025-02-08] MEDS: LACTATED RINGER'S 2,000 ML IV STA (00:35)
[2025-02-08] MEDS: VASOPRESSIN 20 UNITS in SODIUM CHLORIDE 0.9% 100 ML IV SCH (00:44)
[2025-02-08] MEDS: Standard Conc; 4 MG in 250 mL for HYPOTENSION IV SCH (00:55)
--- NOTE | 2025-02-08 00:57 | XRay Report ---
Exam(s): XR CXR 1 VIEW EXAM: XR Chest, 1 View CLINICAL HISTORY: Reason for exam: central line placement. TECHNIQUE: Frontal view of the chest. COMPARISON: Exam performed earlier on the same date FINDINGS: Lungs: Multifocal pneumonia unchanged from prior exam. Pleural space: Unremarkable. No pneumothorax. Heart: Unremarkable. No cardiomegaly. Mediastinum: Unremarkable. Normal mediastinal contour. Bones/joints: Unremarkable. No acute fracture. Tubes, lines and devices: Endotracheal tube is seen with its tip just below the bradley. This has been pulled back several cm in no longer cyst within the right mainstem bronchus. Interval placement of right-sided central venous catheter with its tip in the proximal SVC. Esophageal catheter is present with its tip at the gastroesophageal junction. This should be advanced several cm. IMPRESSION: Endotracheal tube is in much better position sitting just below the bradley. Esophageal catheter seen with its tip at the gastroesophageal junction. This should be advanced at least 5 distended cm Right-sided central venous catheter in the proximal SVC. Electronically signed by: Hai Wilson MD 02/08/25 00:56 AM
[2025-02-08] MEDS ORDERED: EPINEPHrine/NSS 4 MG/254 ML BAG IV SCH ×2 (01:00→01:26)
[2025-02-08 01:10] LABS: Base Excess VBG -8.3 mEq/L; HCO3 VBG 19 mmol/L; Oxygen Saturation VBG 80.1 %; PCO2 VBG 44 mmHg (38-50); PO2 VBG 53 mmHg; pH VBG 7.24 (7.36-7.41)
[2025-02-08 01:31] LABS: Anion Gap 17.0 (3-11); Blood Urea Nitrogen 23.0 mg/dl (6-23); Calcium 7.9 mg/dl (8.6-10.3); Carbon Dioxide 20.0 mmol/L (21-32); Chloride 108.0 mmol/L (98-107); Creatinine Clr Calc Pharmacy 29.6 ml/min; Glucose 289.0 mg/dl (70-99(Fasting)); Potassium 4.4 mmol/L (3.5-5.1); Sodium 145.0 mmol/L (136-145)
--- NOTE | 2025-02-08 01:33 | Critical Care Consultation ---
Date of Consultation February 08, 2025 Assessment & Plan (1) Shock circulatory: (2) Acidosis, lactic: (3) Respiratory failure: (4) Non-ST elevation AR (NSTEMI): (5) Cardiac arrest: (6) Severe hypoxemia: Plan Reason Critically Ill: 74 YOF presents in extremis post PEA arrest out of hospital. Neuro - concern for anoxic brain injury - Imaging without catastrophic intracranial process - pupils fixed and dilated- no new medications or exposures reported and spouse that was close proximity with patient without any symptoms of exposures - Prolonged period of time from arrest to arrival to hospital and prolonged hypotension and hypoxia Cardiac - shock circulatory, NSTEMI, Cardia Arrest- PEA - Refractory shock - despite maxed inotropic, chronotropic and vasopressor agents continued to fail - Heparin held until bleeding ruled out - however was never stable long enough to initiate - no pericardial effusion identified - NSTEMI- was deemed not candidate for interventional lab secondary to lactic acidosis, prolonged down time, and current instability - unable at this juncture to say whether pulmonary failure or cardiac failure was primary cause of arrest or continued decompensation Respiratory - ARDS, failure to ventilate and oxygenate - Bilateral patchy infiltrates R > L- too unstable to undergo bronchoscopy for hemorrhage evaluation- infective vs. cardiogenic vs. non cardiogenic edema vs. pulmonary contusions from CPR- or combination of these - initiated 200mg hydrocortisone - airway without suctionable secretions with Hassan - PE not noted on CTA of chest - continued to fail optimal vent settings and with pharmacological paralytics- not an ECMO candidate secondary to prolonged acidosis on arrival and instability to get to center- comfort measurers undertaken GI - elevated LFTs- likely secondary to ischemia in setting of prolonged hypotension RENAL/LYTES - ARF oliguric, severe metabolic acidosis, lactic acidosis, agap acidosis - 3L crystalloid infused- unable to maintain maps on 3 vasopressors - bicarb improved to 18 - lactic acidosis minimally improved however also on epinephrine infusion - no ischemic bowel noted - has not made any urine at this time - foster in place ENDO - HYperglycemia - Insulin infusion started, no history of DM - either way received bicarb, fluids, and insulin HEME - leukopenia and neutropenia - ? infective etiology however was rapid with no prodrome reported ID - as above, vanco, zosyn, caspofungin will be initiated, however patient likely not going to survive to receive all LINES/IV ACCESS - PIV, CVL, Avani, Foster, OGT, ETT Continue use of these lines DVT PROPHYLAXIS - SCDS DISPO: ICU however patient was never able to sustain hemodynamic or respiratory stability with continued hypotension and hypoxia with maximal therapy available at this time- withdraw of care following discussion with family and patient asystole at 0425. Pronounced by admitting service as condolences were provided by me to remaining at bedside. I have personally spent 120 minutes of critical care time in the direct management of this patient. This is a life/limb threatening event. This includes time spent evaluating patient, direct bedside care, chart review, placing orders, interpretation of diagnostic studies, discussion with consultants, patient, and family members, as well as other required patient management activities. This time is exclusive of all separately billable procedures, and teaching time and separate from and in addition to any other critical care service time. Thank you for allowing us to participate in the care of this patient. Please refer to my attending physician's documentation for any further recommendations. History of Present Illness Reason for Consultation: post cardiac arrest - shock Requesting Physician: Carolynn Aguilar DO Attending Physician: Carolynn Aguilar DO History of Present Illness 74 YOF was brought to the ER as CODE BLUE PEA arrest. Patient is accompanied by , daughter, and grandson. Patient reports that they had just returned from camp this evening and were out watering the reed in the yard. He reports that Arleth went in the house for a brief period of time and came back out to finish watering her reed. The then went to take the trash out and get a watering can and upon return to the area Arleth was watering he did not see her. He reports that he walked around and then saw her lying in the flower bed face down. He reports that he called his daughter and EMS. This occurred around 2029 in the evening. Patient arrived to the ER with first vitals record ed at 22:18. She was reported to be in PEA and hypoxia upon EMS arrival, she was intubated in the field and transported. She received CPR with Jose Alfredo device, received Epinephrine x5 and push dose pressor Epinephrine en route. She arrived with a pulse in the 60s, and blood pressure 50/30s, SPO2 in the 90s. In the ER the patient had routine labs performed, ECG, ABG, and chest Xray. CXR was noted with Right mainstem placement and bilateral patchy infiltrate RT > LT. PH was noted at that time of 6.8, HCO3 of 8, PaO2 183. She was initiated on LEVOphed infusion and remained hypotensive and progressive hypoxia. ECG was obtained and reportedly case discussed with component prep operator and based with elevated lactate and prolonged time of extremis, was not taken to the interventional lab. Central line was then placed and imaging at 0056 with noting still slightly deep ETT but repositioned, appears as she remained significantly hypotensive 70-60s systolic and hypoxic. She has received 1L of crystalloid No further addition of vasopressors noted as well as no noted correction of acid base disturbance undertaken. She was also reportedly with bilateral dilated pupils on arrival to the ER and was on no sedation without spont. movements. Critical Care Services was consulted at 0022 by the admitting Medical Team. I had a brief discussion with the admitting team on arrival to the ER as patient's blood pressure was now down to 60s/30s. Requested 3 amps of NAHCO3, addition of Vasopressin and initiation of Epinephrine infusion as well as Crystalloid bolus, as these actions were undertaken, I was then introduced to family. At this time no cause of arrest has been identified and advanced imaging has not been obtained. I discussed with the , daughter and grandson present as well as with the hospitalist present. Patient has been in extremis for multiple hours at this juncture, we reviewed out of hospital cardiac arrest survival rate and that on top of prolonged hypotension and hypoxia that a meaningful neurological recovery is unlikely and possibility of anoxic brain injury is high, and at this time unable to prognosticate further as need to correct her acid base balance, attempts need made at obtaining a perfusable pressure as well as identify further possible causes of sudden collapse with PEA arrest that may be treatable at this time and warm the patient. Family was updated on her neurological status, hemodynamic status and labs to include acid base. Given this data the options of continuing treatment to improve her labs/vitals and obtain imaging for evaluation or comfort measures. Family wanted to see if other cause of her collapse could be identfied and see if she would respond to treatment with optimization of what we can optimize and if she would fail current support then move to comfort care. Following this discussion patient was re-evaluated and now was with some improvement in her acid base status, and had blood pressures in the 90s systolic and HR in the 90s with Spo2 90s. She had moment of stability at this time and CT of the head, CTA of the chest, and CTA of the abdomen/pelvis was obtained. She was then taken to the ICU where repeat ECG was obtained without STEMI. On arrival to the ICU the patient rapidly decompensated again with BP back in the 70s and hypoxia with blood coming from her ETT. Imaging was reviewed personally without note of catastrophic intracranial process as well as no loss of epps or white matter differention appreciated at this time. CTA chest noting bilateral patchy infiltrations as well as posterior opacities- comparing this to her previous PET CT scan in 09/12, this was significant change, no PE noted. CTA abdomen and pelvis without perforation or hemorrhage noted. Bedside ECHO performed with adequate squeeze noted, however this was also on 0.3mcg/kg/min of epi and maxed out LEVO and Vaso at 0.04. She was still noted with collapse of RV and IVC. Arterial line was obtained, she was significantly hypoxic and ABG was immediately drawn from arterial line which confirmed hypoxia on 10 of PEEP and 100% FIO2. ETT was again withdrawn still noting OMKAR on CTA of chest. Concern at this time is for hemorrhage/infectious cause, or complete failure of myocardium with component of pulmonary edema and/or ARDS. Patient was pharmacologically paralyzed for compliance with small increase in Spo2 following, she was given 200mg of hydrocortisone now, and broad spectrum antibiotics were initiated. 2 more amps bicarb were given, PEEP increased to 14, remained with bilateral breath sounds although rhonchi throughout. Patient progressed with return of acidemia to PH 7.1 @0320 and now with difficulty maintaining ventilation and oxygenation. She remained with dilated fixed bilateral pupils despite correcting acidemia, was overbreathing vent but no cough gag or withdraw noted. Despite optimizing compliance and on maximal support with ventilator and vasoactive medications, she continued to fail therapies, at this time the family had elected to withdrawal care as they knew that she would not want to be kept alive on full life support. Family was given time to be with the patient and following their time with her, vasopressors were turned off, she was disconnected from the ventilator, and provided morphine for pain/or air hunger. Patient was noted asystole and without arterial blood pressure waveform or with pleth reading at 0425. She was pronounced by admitting service. Condolences were given to the family and appropriate grieving was appreciated. Allergies Allergy/AdvReac Type Severity Reaction Status Date / Time ranitidine Allergy Intermediate Rash Verified 01/21/23 13:14 Home Medications Medication Instructions Recorded Confirmed Type multivitamin 1 tab PO QPM #0 tabs 10/24/14 02/07/25 History aspirin 81 mg tablet,delayed 81 mg PO DAILY 05/24/20 02/07/25 History release (Kristin Low Dose Aspirin) pravastatin 20 mg tablet 20 mg PO DAILY 05/24/20 02/07/25 History Patient History Medical History History of anesthesia reaction throwing up Chest heaviness Essential tremor Positive Lyme disease serology Syncope Lyme disease 2 episodes; previous episode 2019 Osteoarthritis Anxiety Tremor HANDS-"REALLY NERVOUS"-NO DX-F/U PCP Hyperlipidemia Hypertension Breast cancer Surgical History Nausea and vomiting after administration of anesthetic agent Hx of lumpectomy LEFT-LEFT ARM RESTRICTION History of hysterectomy AND OTHER OVARY Family History Father , age 82; from [place]? Diabetes Heart disease Mother Kidney stones Brother Cancer Social History Smoking Status: Never smoker Second Hand Exposure: No; Do You Dip or Chew Tobacco: No; Hx Alcohol Use: No Hx Substance Use: No Preferred Language: Italian Communication Ability: Effective Visual Impairment: No Limitations Fire Pot Operator Required: No Beliefs That Will Affect Care: None marital status: Current Living Situation: Spouse Current Living Situation Comment: lives in [place] current occupational status: retired current occupation: worked at [employer], [employer] work, other factory work How many Children do You have: 1 Feels Safe at Home: Yes during the past year weight has: decreased > 10 lbs Assistive Devices: None Review of Systems Review of Systems: as per HPI unable to perform secondary to mental state Physical Exam Physical Exam: PHYSICAL EXAM: Neuro: Not sedated, pupils 7mm bilaterally, overbreathing the vent, no cough/gag, not withdrawing to pain- GCS 3T Chest: equal rise and fall of the chest, prolonged expiration, scattered rhonchi throughout bilaterally, pink tinged secretions in ETT but no large amount suctioned from airway Cardiac: Regular rate and rhythm, telemetry reviewed- Sinus tachycardia no ectopy, cool and clammy extremities GI: soft, not distended : Foster in place no urine output Skin: varicosities, dusky extremities, no bites or puncture wounds apprecaited Results & Data Results & Data Vital Signs (Past 12 Hours) Vital Signs Pulse Pulse Resp BP BP Pulse Ox O2 Del Method 02/08/25 00:56 83/65 L 02/08/25 00:50 63/39 L 02/08/25 00:33 91 H 24 61/33 L 98 02/08/25 00:12 89 16 74/56 L 97 02/08/25 00:00 85 16 84/65 L 97 Mechanical Vent 02/07/25 23:50 82 20 89 L 02/07/25 23:44 84 18 76/27 L 97 Mechanical Vent 02/07/25 23:12 83 22 90/51 L 86 L Mechanical Vent 02/07/25 22:52 89/50 L 02/07/25 22:52 89/50 L 02/07/25 22:50 89/53 L 02/07/25 22:46 74/45 L 02/07/25 22:41 97 Mechanical Vent 02/07/25 22:32 71 02/07/25 22:24 64 20 98 02/07/25 22:22 55/35 L 02/07/25 22:22 55/35 L 02/07/25 22:21 61 20 98 02/07/25 22:20 58/33 L 02/07/25 22:18 65 20 99 02/07/25 22:18 57/34 L 02/07/25 22:18 57/34 L 02/07/25 22:13 Mechanical Vent 02/07/25 22:07 68 25 H 99 Mechanical Vent 02/07/25 22:00 63 20 90 02/07/25 21:57 66 FiO2 02/08/25 00:56 02/08/25 00:50 02/08/25 00:33 02/08/25 00:12 02/08/25 00:00 02/07/25 23:50 100 02/07/25 23:44 02/07/25 23:12 02/07/25 22:52 02/07/25 22:52 02/07/25 22:50 02/07/25 22:46 02/07/25 22:41 02/07/25 22:32 02/07/25 22:24 02/07/25 22:22 02/07/25 22:22 02/07/25 22:21 02/07/25 22:20 02/07/25 22:18 02/07/25 22:18 02/07/25 22:18 02/07/25 22:13 02/07/25 22:07 02/07/25 22:00 100 02/07/25 21:57 Laboratory Results Abnormal lab results 02/07/25 02/07/25 02/07/25 Range/Units 21:58 22:08 22:23 WBC (4.8-10.8) K/ul RBC 2.77 L (4.20-5.40) M/uL Hgb 9.7 L (12.0-16.0) g/dl POC Hgb (12.0-16.0) g/dl Hct 32.4 L (37.0-47.0) % POC Hct (37-47) % MCV 117.0 H (80.0-100.0) fL MCH 35.0 H (25.0-34.0) pg MCHC 29.9 L (32.0-36.0) g/dL RDW Std Deviation 57.1 H (36.4-46.3) fL Plt Count 103 L (130-400) K/uL Neut # (Auto) (1.40-6.50) K/uL [place] # (Auto) (0.11-0.59) K/uL Immature Gran # (Auto) 0.43 H (0.01-0.20) K/uL APTT 81 H* (21-31) Seconds POC pH (7.35-7.45) POC pCO2 (35-46) mmHg POC pO2 (80-95) mmHg POC HCO3 (19-24) dilia/L POC Total CO2 (24-31) mmol/L POC Base Excess (-9-1.8) dilia/L POC ABG O2 Sat (90-95) % VBG pH (7.36-7.41) Chloride 111 H (98-107) mmol/L Carbon Dioxide 11 L (21-32) mmol/L Anion Gap 19 H (3-11) Creatinine 1.30 H (0.6-1.2) mg/dl Glucose 311 H* (70-99(Fasting)) mg/dl POC Glucose 280 H (70-99) mg/dl POC Glucose (other) (70-99) mg/dl Lactate 13.6 H* (0.4-2.0) mmol/L Calcium (8.6-10.3) mg/dl AST 191 H (13-39) U/L ALT 208 H (7-52) U/L Troponin I High Sens 178.8 H* (0-14) pg/ml Total Protein 4.7 L (6.0-8.3) gm/dl Albumin 3.1 L (3.4-5.0) gm/dl Globulin 1.6 L (2.5-4.0) gm/dl Lipase 110 H (11-82) U/L 02/07/25 02/08/25 02/08/25 Range/Units 22:36 00:49 02:11 WBC 2.16 L (4.8-10.8) K/ul RBC 3.16 L (4.20-5.40) M/uL Hgb 11.0 L (12.0-16.0) g/dl POC Hgb 7.8 L 8.8 L (12.0-16.0) g/dl Hct 33.3 L (37.0-47.0) % POC Hct 23 L 26 L (37-47) % MCV 105.4 H D (80.0-100.0) fL MCH 34.8 H (25.0-34.0) pg MCHC (32.0-36.0) g/dL RDW Std Deviation 51.0 H (36.4-46.3) fL Plt Count (130-400) K/uL Neut # (Auto) 0.64 L* (1.40-6.50) K/uL [place] # (Auto) 0.05 L (0.11-0.59) K/uL Immature Gran # (Auto) (0.01-0.20) K/uL APTT (21-31) Seconds POC pH 6.89 L* 7.20 L (7.35-7.45) POC pCO2 (35-46) mmHg POC pO2 183 H 54 L (80-95) mmHg POC HCO3 8 L 16 L (19-24) dilia/L POC Total CO2 9 L* 17 L (24-31) mmol/L POC Base Excess -25.0 L -12.0 L (-9-1.8) dilia/L POC ABG O2 Sat 98.0 H 81.0 L (90-95) % VBG pH 7.24 L (7.36-7.41) Chloride 108 H (98-107) mmol/L Carbon Dioxide 20 L (21-32) mmol/L Anion Gap 17 H (3-11) Creatinine 1.45 H (0.6-1.2) mg/dl Glucose 289 H (70-99(Fasting)) mg/dl POC Glucose (70-99) mg/dl POC Glucose (other) (70-99) mg/dl Lactate 11.6 H* (0.4-2.0) mmol/L Calcium 7.9 L (8.6-10.3) mg/dl AST (13-39) U/L ALT (7-52) U/L Troponin I High Sens 1454.8 H* D (0-14) pg/ml Total Protein (6.0-8.3) gm/dl Albumin (3.4-5.0) gm/dl Globulin (2.5-4.0) gm/dl Lipase (11-82) U/L 02/08/25/ Range/Units 03:16 03:20 WBC (4.8-10.8) K/ul RBC (4.20-5.40) M/uL Hgb (12.0-16.0) g/dl POC Hgb 8.2 L (12.0-16.0) g/dl Hct (37.0-47.0) % POC Hct 24 L (37-47) % MCV (80.0-100.0) fL MCH (25.0-34.0) pg MCHC (32.0-36.0) g/dL RDW Std Deviation (36.4-46.3) fL Plt Count (130-400) K/uL Neut # (Auto) (1.40-6.50) K/uL [place] # (Auto) (0.11-0.59) K/uL Immature Gran # (Auto) (0.01-0.20) K/uL APTT (21-31) Seconds POC pH 7.17 L* (7.35-7.45) POC pCO2 53 H (35-46) mmHg POC pO2 47 L (80-95) mmHg POC HCO3 (19-24) dilia/L POC Total CO2 21 L (24-31) mmol/L POC Base Excess (-9-1.8) dilia/L POC ABG O2 Sat 71.0 L (90-95) % VBG pH (7.36-7.41) Chloride (98-107) mmol/L Carbon Dioxide (21-32) mmol/L Anion Gap (3-11) Creatinine (0.6-1.2) mg/dl Glucose (70-99(Fasting)) mg/dl POC Glucose (70-99) mg/dl POC Glucose (other) 331 H (70-99) mg/dl Lactate (0.4-2.0) mmol/L Calcium (8.6-10.3) mg/dl AST (13-39) U/L ALT (7-52) U/L Troponin I High Sens (0-14) pg/ml Total Protein (6.0-8.3) gm/dl Albumin (3.4-5.0) gm/dl Globulin (2.5-4.0) gm/dl Lipase (11-82) U/L Diagnostic Findings Chest X-Ray 02/07/25 22:23 CR Exam(s): XR CXR 1 VIEW EXAM: XR Chest, 1 View CLINICAL HISTORY: Reason for exam: Chest pain, nonspecific. TECHNIQUE: Frontal view of the chest. COMPARISON: No relevant prior studies available. FINDINGS: Lungs: See below. Pleural space: Unremarkable. No pneumothorax. Heart: Unremarkable. No cardiomegaly. Mediastinum: Unremarkable. Normal mediastinal contour. Bones/joints: Unremarkable. No acute fracture. Tubes, lines and devices: The endotracheal tube is seen with its tip extending into the right mainstem bronchus. This should be pulled back at least 5 cm. Patchy right lung interstitial infiltrate. IMPRESSION: In properly positioned endotracheal tube in the right mainstem bronchus. This should be pulled back by 5 cm. Multifocal pneumonia Communications: Call Doctor Misplaced tube or line, life-threatening Electronically signed by: Hai Wilson MD 02/08/25 00:12 AM Chest X-Ray 02/07/25 23:32 Exam(s): XR CXR 1 VIEW EXAM: XR Chest, 1 View CLINICAL HISTORY: Reason for exam: central line placement. TECHNIQUE: Frontal view of the chest. COMPARISON: Exam performed earlier on the same date FINDINGS: Lungs: Multifocal pneumonia unchanged from prior exam. Pleural space: Unremarkable. No pneumothorax. Heart: Unremarkable. No cardiomegaly. Mediastinum: Unremarkable. Normal mediastinal contour. Bones/joints: Unremarkable. No acute fracture. Tubes, lines and devices: Endotracheal tube is seen with its tip just below the bradley. This has been pulled back several cm in no longer cyst within the right mainstem bronchus. Interval placement of right-sided central venous catheter with its tip in the proximal SVC. Esophageal catheter is present with its tip at the gastroesophageal junction. This should be advanced several cm. IMPRESSION: Endotracheal tube is in much better position sitting just below the bradley. Esophageal catheter seen with its tip at the gastroesophageal junction. This should be advanced at least 5 distended cm Right-sided central venous catheter in the proximal SVC. Electronically signed by: Hai Wilson MD 02/08/25 00:56 AM Chest CTA 02/07/25 23:52 EXAM: CT angio chest PE protocol CLINICAL HISTORY: PE, post arrest TECHNIQUE: Contiguous axial images were obtained from the neck base through the upper abdomen following intravenous administration of iodinated contrast material. Angiographic images were processed, 3D MIP images were acquired for interpretation. If IV contrast material had not been administered, the likelihood of detecting abnormalities relevant to the patient's condition would have been substantially decreased. Coronal and sagittal 3-D MIPs were likewise performed and indicated to increase the sensitivity of detecting diffuse clinically relevant pathology. CT scan was performed according to ALARA (as low as reasonable achievable). COMPARISON: None. FINDINGS: Adequate contrast bolus without evidence of pulmonary embolism. Mild right pleural effusion is seen. Multiple irregular areas of ground glass and soft tissue attenuation are seen in the lungs. Smooth interlobular septal thickening is seen. The central airways are patent. Endotracheal tube is seen in situ with its tip reaching into the right main bronchus. Nasogastric tube is seen in situ with its tip at gastro-esophageal junction. Advised repositioning. The heart, aorta, and pulmonary arteries are of normal size and configuration. No pericardial effusion is identified. There are appreciable aortic atherosclerotic calcifications. Multiple calcified mediastinal and left hilar lymph nodes are seen. Mildly displaced fractures of left 5th-7th ribs. A lytic lesion measuring 12mm is seen in T2 vertebral body with internal dots - likely a hemangioma. IMPRESSION: 1. No evidence of pulmonary embolism. 2. Diffuse smooth interlobular septal thickening with areas of ground glass attenuation - suggestive of pulmonary edema. 3. Multiple patchy consolidations in lungs - suggestive of associated infective etiology. 4. Mildly displaced fractures of left 5th-7th ribs. 5. Enditracheal tube in situ with tip in right main bronchus. Advise repositioning. Electronically signed by Samy Conner 02-08-2025 03:[address] 02/07/25 23:52 EXAM: CT head/brain wo con CLINICAL HISTORY: post cardiac arrest TECHNIQUE: Multiple axial images are obtained from the skull base to the vertex without contrast. CT scan was performed according to ALARA (as low as reasonably achievable). COMPARISON: none FINDINGS: The brain shows normal morphology, attenuation, and volume for age. No evidence of space occupying lesion, hemorrhage, edema, mass effect, midline shift, extra axial collection, or hydrocephalus is noted. Ventricles, sulci, and basal cisterns are symmetric and normal in size and configuration. The herndon-white matter differentiation is preserved. Visualized mastoid air cells are well aerated. Orbital contents are within normal limits. Bony structures are intact. Bilateral posterior ethmoidal sinusitis. Fluid secretion seen in bilateral posterior choana and nasopharynx. IMPRESSION: 1. No evidence of acute intracranial abnormality is demonstrated. 2. Bilateral posterior ethmoidal sinusitis. 3. Fluid secretion seen in bilateral posterior choana and nasopharynx. Electronically signed by Samy Conner 02-08-2025 02:14 AM Abdomen/Pelvis CTA 02/08/25 00:29 EXAM: CT angio abdomen pelvis w con CLINICAL HISTORY: hypotension, cardiac arrest TECHNIQUE: Contrast enhanced thin slice CT angiography scan of the abdominal aorta was performed with intravenous contrast. Angiographic images were processed, 3D MIP images were acquired for interpretation. Contiguous axial images were obtained. Reformatted coronal and sagittal images were also reviewed. If IV contrast material had not been administered, the likelihood of detecting abnormalities relevant to the patients condition would have been substantially decreased. CT scan was performed according to ALARA (as low as reasonable achievable). COMPARISON: none FINDINGS: Abdominal aorta is normal in course, calibre and opacification. Origin of coeliac artery, superior mesenteric artery , bilateral main renal and lumbar arteries are normal with no hemodynamically significant ostial stenosis noted. Bilateral common, external and internal iliac arteries are normal in course, caliber and opacification. Solid abdominal organs including spleen, pancreas and bilateral kidneys reveal no significant abnormality. No evidence of ascites. Fluid filled and mildly dilated small bowel loops, measuring upto 3.2cm in diameter with no obvious transition point- could represent paralytic ileus Approximately 2.8mm calculus in upperpole of left kidney Moderate fecal content in large bowel loops IVC is collapsed- likely hypovolemia Liver shows diffusely heterogenous attenuation Nasogastric tube insitu with tip seen in distal oesophagus- needs repositioning Foster's catheter insitu IMPRESSION: IVC is collapsed, hyperenhancing bilateral adrenal glands - likely suggestive of hypovolemia / circulatory collapse No evidence of stenosis or aneurysm in visualised intra abdominal arteries. No evidence of dissection. Fluid filled and mildly dilated small bowel loops with no obvious transition point- could represent paralytic ileus Moderate fecal content in large bowel loops on right side. Non obstructive left renal calculus Liver shows diffusely heterogenous attenuation, could be due to underlying cardiac cause. Nasogastric tube insitu with tip seen in distal oesophagus- needs repositioning Electronically signed by Samy Conner 02-08-2025 03:07 AM Medications Administered Discontinued Medications Fentanyl Citrate (Fentanyl Citrate Pf 100 Mcg/2 Ml Vial) Confirm Administered Dose 100 mcg .ROUTE .STK-MED ONE Stop: 02/08/25 02:18 Last Admin: 02/08/25 02:47 Dose: Not Given Documented By: JOSELINE Fentanyl Citrate (Fentanyl Citrate Pf 100 Mcg/2 Ml Vial) 25 mcg IV NOW ONE Stop: 02/08/25 02:33 Last Admin: 02/08/25 02:48 Dose: 25 mcg Documented By: JOSELINE Hydrocortisone Sodium Succinate (Hydrocortisone Sod Succinate 100 Mg/2 Ml Vial) Confirm Administered Dose 200 mg .ROUTE .STK-MED ONE Stop: 02/08/25 02:32 Last Admin: 02/08/25 02:47 Dose: Not Given Documented By: JOSELINE Sodium Chloride (Nss) 1,000 mls @ 999 mls/hr IV .Q1H1M STA Stop: 02/07/25 23:22 Last Infusion: 02/07/25 23:30 Dose: Infused Documented By: Admin: 02/07/25 22:26 Dose: 999 mls/hr Documented By: MED Norepinephrine Bitartrate (Levophed/D5w) 4 mg in 250 mls @ 175.875 mls/hr IV .Q1H26M ERIKA; Protocol Stop: 03/09/25 22:29 Last Titration: 02/08/25 04:03 Dose: Infused Documented By: JT Co-signed By: TLM Titration: 02/08/25 02:56 Dose: 0.7 mcg/kg/min, 175.9 mls/hr Documented By: JTristan Co-signed By: TLM Admin: 02/08/25 02:48 Dose: 0.6 mcg/kg/min, 150.8 mls/hr Documented By: JT Co-signed By: MNM Titration: 02/08/25 02:38 Dose: Infused Documented By: JT Co-signed By: MNAvis Admin: 02/08/25 00:58 Dose: 0.6 mcg/kg/min, 150.8 mls/hr Documented By: LYUDMILA Co-signed By: CDM Titration: 02/08/25 00:58 Dose: Infused Documented By: LYUDMILA Co-signed By: CDM Titration: 02/08/25 00:32 Dose: 0.6 mcg/kg/min, 150.8 mls/hr Documented By: KMF Co-signed By: MED Titration: 02/08/25 00:31 Dose: 0.46 mcg/kg/min, 115.6 mls/hr Documented By: KMF Co-signed By: CDM Titration: 02/08/25 00:22 Dose: 0.44 mcg/kg/min, 110.6 mls/hr Documented By: LYUDMILA Co-signed By: MED Titration: 02/07/25 23:52 Dose: 0.42 mcg/kg/min, 105.5 mls/hr Documented By: LYUDMILA Co-signed By: MJJ Titration: 02/07/25 23:43 Dose: 0.4 mcg/kg/min, 100.5 mls/hr Documented By: LYUDMILA Co-signed By: MED Titration: 02/07/25 23:42 Dose: 0.34 mcg/kg/min, 85.4 mls/hr Documented By: KMF Co-signed By: MED Titration: 02/07/25 23:33 Dose: 0.32 mcg/kg/min, 80.4 mls/hr Documented By: KMF Co-signed By: ABDIAZIZ Titration: 02/07/25 22:47 Dose: 0.3 mcg/kg/min, 75.4 mls/hr Documented By: KMS Co-signed By: MED Titration: 02/07/25 22:46 Dose: 0.26 mcg/kg/min, 65.3 mls/hr Documented By: KMS Co-signed By: MED Titration: 02/07/25 22:38 Dose: 0.24 mcg/kg/min, 60.3 mls/hr Documented By: MED Co-signed By: KMS Titration: 02/07/25 22:34 Dose: 0.2 mcg/kg/min, 50.3 mls/hr Documented By: MED Co-signed By: KMS Titration: 02/07/25 22:29 Dose: 0.14 mcg/kg/min, 35.2 mls/hr Documented By: MED Co-signed By: KMS Titration: 02/07/25 22:24 Dose: 0.12 mcg/kg/min, 30.2 mls/hr Documented By: MED Co-signed By: KMS Titration: 02/07/25 22:19 Dose: 0.1 mcg/kg/min, 25.1 mls/hr Documented By: MED Co-signed By: JEWEL Titration: 02/07/25 22:18 Dose: 0.07 mcg/kg/min, 17.6 mls/hr Documented By: MED Co-signed By: SM Admin: 02/07/25 22:05 Dose: 0.05 mcg/kg/min, 12.6 mls/hr Documented By: MED Co-signed By: XIMENA Lactated Ringer's (Lr) 2,000 mls @ 999 mls/hr IV .Q2H1M STA Stop: 02/08/25 02:31 Last Infusion: 02/08/25 04:06 Dose: Infused Documented By: Admin: 02/08/25 00:35 Dose: 999 mls/hr Documented By: LYUDMILA Vasopressin 20 units/ Sodium (Chloride) 101 mls @ 12.12 mls/hr IV .Q8H20M ERIKA Stop: 03/10/25 00:29 Last Infusion: 02/08/25 04:04 Dose: Infused Documented By: JOSELINE Co-signed By: JOSHUA Admin: 02/08/25 00:44 Dose: 0.04 unit/min, 12.1 mls/hr Documented By: LYUDMILA Co-signed By: MED Epinephrine HCl () 4 mg in 254 mls @ 127.635 mls/hr IV .Q2H ERIKA; Protocol Stop: 03/10/25 00:59 Last Titration: 02/08/25 04:04 Dose: Infused Documented By: JOSELINE Co-signed By: JOSHUA Titration: 02/08/25 02:56 Dose: 0.5 mcg/kg/min, 127.6 mls/hr Documented By: JOSELINE Co-signed By: JOSHUA Titration: 02/08/25 01:02 Dose: 0.03 mcg/kg/min, 7.7 mls/hr Documented By: XIMENA Co-signed By: LYUDMILA Admin: 02/08/25 00:55 Dose: 0.02 mcg/kg/min, 5.1 mls/hr Documented By: LYUDMILA Co-signed By: XIMENA Lactated Ringer's (Lr) 1,000 mls @ 999 mls/hr IV .Q1H1M ONE Stop: 02/08/25 01:53 Last Infusion: 02/08/25 04:06 Dose: Infused Documented By: Admin: 02/08/25 02:46 Dose: 999 mls/hr Documented By: JOSELINE Calcium Chloride 1,000 mg/ (Dextrose) 60 mls @ 240 mls/hr IV NOW STA Stop: 02/08/25 01:48 Last Infusion: 02/08/25 04:06 Dose: Infused Documented By: Admin: 02/08/25 02:15 Dose: 240 mls/hr Documented By: JOSELINE Hydrocortisone Sodium (Succinate 200 mg/ Syringe) 4 mls @ 4 mls/min IV NOW ONE Stop: 02/08/25 02:31 Last Admin: 02/08/25 02:47 Dose: 4 mls/min Documented By: JOSELINE Lactated Ringer's (Lr) 1,000 mls @ 999 mls/hr IV .Q1H1M ONE Stop: 02/08/25 03:32 Last Infusion: 02/08/25 04:05 Dose: Infused Documented By: Admin: 02/08/25 02:48 Dose: 999 mls/hr Documented By: JOSELINE Vancomycin HCl 1,750 mg/ (Sodium Chloride) 535 mls @ 200 mls/hr IV NOW ONE Stop: 02/08/25 05:25 Last Infusion: 02/08/25 04:05 Dose: Infused Documented By: Admin: 02/08/25 03:20 Dose: 200 mls/hr Documented By: JOSELINE Doxycycline Hyclate 100 mg/ (Dextrose) 100 mls @ 50 mls/hr IV Q12H ERIKA Stop: 02/13/25 03:59 Last Infusion: 02/08/25 04:04 Dose: Infused Documented By: Admin: 02/08/25 03:20 Dose: 50 mls/hr Documented By: JOSELINE Caspofungin 70 mg/ Sodium (Chloride) 260 mls @ 260 mls/hr IV ONCE ONE; Protocol Stop: 02/08/25 03:59 Last Infusion: 02/08/25 04:05 Dose: Infused Documented By: Admin: 02/08/25 03:20 Dose: 260 mls/hr Documented By: JOSELINE Piperacillin Sod/Tazobactam Sod (Zosyn) 4.5 gm in 100 mls @ 200 mls/hr IV ONE ONE; Protocol Stop: 02/08/25 03:29 Last Infusion: 02/08/25 04:05 Dose: Infused Documented By: Admin: 02/08/25 03:19 Dose: 200 mls/hr Documented By: JOSELINE Ioversol (Optiray 320 125ml) 125 ml IV ONCE ONE Stop: 02/08/25 01:44 Last Admin: 02/08/25 01:43 Dose: 118 ml Documented By: BYRON Morphine Sulfate (Morphine Sulfate 4 Mg/Ml 1 Ml Carp\\Vial) 3 mg IV Q1H PRN PRN Reason: Pain or Respiratory Distress Stop: 02/22/25 03:36 Last Admin: 02/08/25 04:13 Dose: 3 mg Documented By: JOSELINE Norepinephrine Bitartrate (Norepinephrine/D5w 4 Mg/250 Ml) Confirm Administered Dose 4 mg IV .STK-MED ONE Stop: 02/07/25 22:02 Last Admin: 02/07/25 22:38 Dose: Not Given Documented By: SAL Sodium Bicarbonate (Sodium Bicarb 8.4% Inj 50 Meq/50 Ml Syr) 50 meq IV NOW STA Stop: 02/08/25 00:14 Last Admin: 02/08/25 00:20 Dose: 50 meq Documented By: LYUDMILA Sodium Bicarbonate (Sodium Bicarb 8.4% Inj 50 Meq/50 Ml Syr) 50 meq IV NOW STA Stop: 02/08/25 00:14 Last Admin: 02/08/25 00:28 Dose: Not Given Documented By: LYUDMILA Sodium Bicarbonate (Sodium Bicarb 8.4% Inj 50 Meq/50 Ml Syr) Confirm Administered Dose 100 meq IV .STK-MED ONE Stop: 02/08/25 00:16 Last Admin: 02/08/25 00:28 Dose: 100 meq Documented By: LYUDMILA Sodium Bicarbonate (Sodium Bicarb 8.4% Inj 50 Meq/50 Ml Syr) 50 meq IV NOW STA Stop: 02/08/25 00:28 Last Admin: 02/08/25 00:40 Dose: 50 meq Documented By: LYUDMILA Sodium Bicarbonate (Sodium Bicarb 8.4% Inj 50 Meq/50 Ml Syr) Confirm Administered Dose 100 meq IV .STK-MED ONE Stop: 02/08/25 02:33 Last Admin: 02/08/25 02:48 Dose: Not Given Documented By: JOSELINE Vecuronium Barnhart (Vecuronium Barnhart 10 Mg Vial) 8 mg IV NOW STA Stop: 02/08/25 02:29 Last Admin: 02/08/25 02:46 Dose: 8 mg Documented By: JOSELINE Co-signed By: CECELIA Vecuronium Barnhart (Vecuronium Barnhart 10 Mg Vial) Confirm Administered Dose 10 mg IV .STK-MED ONE Stop: 02/08/25 02:33 Last Admin: 02/08/25 02:48 Dose: Not Given Documented By: JOSELINE [facility] [place] Codes (Charges) Tubes, Drains, and Vasc Access Procedure 1: Tubes, Drains, and Vasc Access: [id number] Arterial Cath/Cannulation Sampling/Monitoring/Transfusion Coding Level of Care Code 48499 CRITICAL CARE 1ST 30-74M Additional Critical Care Time Additional 30min Critical Care Time: Yes - 52252 Total Critical Care Time: 120 Diagnoses Shock circulatory R57.9 Acidosis, lactic E87.20 Respiratory failure J96.90 Non-ST elevation AR (NSTEMI) I21.4 Cardiac arrest I46.9 Severe hypoxemia R09.02 CPT Codes Tubes, Drains, and Vasc Access - Tubes, Drains, and Vasc Access: [id number] Arterial Cath/Cannulation Sampling/Monitoring/Transfusion ([id number]) Additional Codes Critical Care Time - Additional 30min Critical Care Time: Yes - 82455 ([id number])
[2025-02-08] MEDS ORDERED: INSULIN PROTOCOL GOAL RANGE ONE (01:34)
[2025-02-08] MEDS ORDERED: SEVERE STRESS LEVEL ONE (01:34)
[2025-02-08 01:42] LABS: Hematocrit (blood only) 33.3 % (37.0-47.0); Hemoglobin 11.0 g/dl (12.0-16.0); Immature Granulocytes # (auto) 0.03 K/uL (0.01-0.20); Immature Granulocytes % (auto) 1.4 %; Mean Corpuscular Hemoglobin 34.8 pg (25.0-34.0); Mean Corpuscular Volume 105.4 fL (80.0-100.0); Platelet Count 152 K/uL (130-400); RDW Standard Deviation 51.0 fL (36.4-46.3); Red Blood Count 3.16 M/uL (4.20-5.40); White Blood Count 2.16 K/ul (4.8-10.8)
[2025-02-08] MEDS: OPTIRAY 320 125ml IV ONE (01:43)
[2025-02-08 01:50] LABS: Glucose 311.0 mg/dl (70-99(Fasting))
[2025-02-08] MEDS ORDERED: INSULIN REGULAR 250 UNITS in SODIUM CHLORIDE 0.9% 247.5 ML IV SCH (02:00)
[2025-02-08] MEDS ORDERED: GLUCOSE 10 TAB/TUBE PO PRN (02:00)
[2025-02-08] MEDS ORDERED: GLUCOSE 40% GEL 15 GM TUBE PO PRN (02:00)
[2025-02-08] MEDS ORDERED: NovoLIN-R BOLUS FROM BAG IV ONE (02:00)
[2025-02-08] MEDS ORDERED: GLUCAGON FOR INJ 1 MG VIAL SQ PRN (02:00)
[2025-02-08] MEDS ORDERED: DEXTROSE 50% 50 ML SYRINGE IV PRN (02:00)
[2025-02-08] MEDS ORDERED: CARBOHYDRATES FOR HYPOGLYCEMIA PO PRN (02:00)
[2025-02-08] MEDS: CALCIUM CHLORIDE 10% 1,000 MG in DEXTROSE 5% 50 ML IV STA (02:15)
--- NOTE | 2025-02-08 02:16 | CT Scan Report ---
EXAM: CT head/brain wo con CLINICAL HISTORY: post cardiac arrest TECHNIQUE: Multiple axial images are obtained from the skull base to the vertex without contrast. CT scan was performed according to ALARA (as low as reasonably achievable). COMPARISON: none FINDINGS: The brain shows normal morphology, attenuation, and volume for age. No evidence of space occupying lesion, hemorrhage, edema, mass effect, midline shift, extra axial collection, or hydrocephalus is noted. Ventricles, sulci, and basal cisterns are symmetric and normal in size and configuration. The herndon-white matter differentiation is preserved. Visualized mastoid air cells are well aerated. Orbital contents are within normal limits. Bony structures are intact. Bilateral posterior ethmoidal sinusitis. Fluid secretion seen in bilateral posterior choana and nasopharynx. IMPRESSION: 1. No evidence of acute intracranial abnormality is demonstrated. 2. Bilateral posterior ethmoidal sinusitis. 3. Fluid secretion seen in bilateral posterior choana and nasopharynx. Electronically signed by Samy Conner 02-08-2025 02:14 AM
[2025-02-08 02:27] LABS: iSTAT Art Bld Gas Base Excess -12.0 meg/L (-9-1.8)
[2025-02-08] MEDS ORDERED: VANCOMYCIN CONSULT ACTIVE PRN (02:45)
[2025-02-08] MEDS: LACTATED RINGER'S 1,000 ML IV ONE ×2 (02:46→02:48)
[2025-02-08] MEDS: VECURONIUM BROMIDE 10 MG VIAL IV STA (02:46)
[2025-02-08] MEDS: HYDROCORTISONE SOD SUCCINATE 100 MG/2 ML VIAL ONE (02:47)
[2025-02-08] MEDS: HYDROCORTISONE SOD 200 MG in SYRINGE 0 ML IV ONE (02:47)
[2025-02-08] MEDS: VECURONIUM BROMIDE 10 MG VIAL IV ONE (02:48)
[2025-02-08] MEDS ORDERED: Nursing to Pharmacy Communication ONE (03:00)
--- NOTE | 2025-02-08 03:01 | CT Scan Report ---
EXAM: CT angio chest PE protocol CLINICAL HISTORY: PE, post arrest TECHNIQUE: Contiguous axial images were obtained from the neck base through the upper abdomen following intravenous administration of iodinated contrast material. Angiographic images were processed, 3D MIP images were acquired for interpretation. If IV contrast material had not been administered, the likelihood of detecting abnormalities relevant to the patient's condition would have been substantially decreased. Coronal and sagittal 3-D MIPs were likewise performed and indicated to increase the sensitivity of detecting diffuse clinically relevant pathology. CT scan was performed according to ALARA (as low as reasonable achievable). COMPARISON: None. FINDINGS: Adequate contrast bolus without evidence of pulmonary embolism. Mild right pleural effusion is seen. Multiple irregular areas of ground glass and soft tissue attenuation are seen in the lungs. Smooth interlobular septal thickening is seen. The central airways are patent. Endotracheal tube is seen in situ with its tip reaching into the right main bronchus. Nasogastric tube is seen in situ with its tip at gastro-esophageal junction. Advised repositioning. The heart, aorta, and pulmonary arteries are of normal size and configuration. No pericardial effusion is identified. There are appreciable aortic atherosclerotic calcifications. Multiple calcified mediastinal and left hilar lymph nodes are seen. Mildly displaced fractures of left 5th-7th ribs. A lytic lesion measuring 12mm is seen in T2 vertebral body with internal dots - likely a hemangioma. IMPRESSION: 1. No evidence of pulmonary embolism. 2. Diffuse smooth interlobular septal thickening with areas of ground glass attenuation - suggestive of pulmonary edema. 3. Multiple patchy consolidations in lungs - suggestive of associated infective etiology. 4. Mildly displaced fractures of left 5th-7th ribs. 5. Enditracheal tube in situ with tip in right main bronchus. Advise repositioning. Electronically signed by Samy Conner 02-08-2025 03:01 AM
--- NOTE | 2025-02-08 03:08 | CT Scan Report ---
EXAM: CT angio abdomen pelvis w con CLINICAL HISTORY: hypotension, cardiac arrest TECHNIQUE: Contrast enhanced thin slice CT angiography scan of the abdominal aorta was performed with intravenous contrast. Angiographic images were processed, 3D MIP images were acquired for interpretation. Contiguous axial images were obtained. Reformatted coronal and sagittal images were also reviewed. If IV contrast material had not been administered, the likelihood of detecting abnormalities relevant to the patients condition would have been substantially decreased. CT scan was performed according to ALARA (as low as reasonable achievable). COMPARISON: none FINDINGS: Abdominal aorta is normal in course, calibre and opacification. Origin of coeliac artery, superior mesenteric artery , bilateral main renal and lumbar arteries are normal with no hemodynamically significant ostial stenosis noted. Bilateral common, external and internal iliac arteries are normal in course, caliber and opacification. Solid abdominal organs including spleen, pancreas and bilateral kidneys reveal no significant abnormality. No evidence of ascites. Fluid filled and mildly dilated small bowel loops, measuring upto 3.2cm in diameter with no obvious transition point- could represent paralytic ileus Approximately 2.8mm calculus in upperpole of left kidney Moderate fecal content in large bowel loops IVC is collapsed- likely hypovolemia Liver shows diffusely heterogenous attenuation Nasogastric tube insitu with tip seen in distal oesophagus- needs repositioning Ogden's catheter insitu IMPRESSION: IVC is collapsed, hyperenhancing bilateral adrenal glands - likely suggestive of hypovolemia / circulatory collapse No evidence of stenosis or aneurysm in visualised intra abdominal arteries. No evidence of dissection. Fluid filled and mildly dilated small bowel loops with no obvious transition point- could represent paralytic ileus Moderate fecal content in large bowel loops on right side. Non obstructive left renal calculus Liver shows diffusely heterogenous attenuation, could be due to underlying cardiac cause. Nasogastric tube insitu with tip seen in distal oesophagus- needs repositioning Electronically signed by Samy Conner 02-08-2025 03:07 AM
[2025-02-08] MEDS: PIPERACILLIN/TAZOBACTAM 4.5 GM/100 ML BAG IV ONE (03:19)
[2025-02-08] MEDS: CASPOFUNGIN 70 MG in SODIUM CHLORIDE 0.9% 250 ML IV ONE (03:20)
[2025-02-08] MEDS: DOXYCYCLINE HYCLATE 100 MG in DEXTROSE 5% MINI-B 100 ML IV SCH (03:20)
[2025-02-08] MEDS: VANCOMYCIN HCL 1,750 MG in SODIUM CHLORIDE 0.9% 500 ML IV ONE (03:20)
[2025-02-08] MEDS ORDERED: SODIUM BICARB 8.4% INJ 50 MEQ/50 ML SYR IV STA (03:22)
[2025-02-08 03:30] LABS: iSTAT Art Bld Gas Base Excess -9.0 meg/L (-9-1.8)
[2025-02-08] MEDS ORDERED: ONDANSETRON INJ 2 MG/ML 2 ML VIAL IV PRN (03:37)
[2025-02-08] MEDS: MoRPHine SULFATE 4 MG/ML 1 ML CARP\\VIAL IV PRN (04:13)
[2025-02-08 04:17] VITALS: BP 107/73; PULSE 59; RESP 0; TEMP 89.1; O2SAT 74
--- NOTE | 2025-02-08 04:54 | Death Pronouncement Note ---
Date of Service February 08, 2025 Pronouncement Note Admission Date February 08, 2025 Date and Time of Date of : 02/08/25 Time of : 04:25 Contributing Factors 1. Cardiac Arrest 2. Severe Metabolic Acidosis 3. Refractory hypotension 4. Refractory hypoxemia Summary Patient found to be in a terminal state. Absence of spontaneous heart tones and spontaneous breaths. Pupils fixed and dilated bilaterally. No withdrawal from noxious stimuli. at bedside at the time patient passed. Daughter and grandson are in the waiting room and do not wish to be at bedside at this time. Patient pronounced at 04:25 Additional Data Confirmation of : no pulse, no respirations, no heart sounds, pupils fixed and dilated and other (no withdrawal from painful stimuli. ) Pronouncement Performed By: Attending Physician Family: at bedside Attending physician: Carolynn Aguilar, DO Was code activated?: No Autopsy requested?: No letter of credit document examiner notified?: Yes Coding Level of Care Code None
--- NOTE | 2025-02-08 04:55 | Discharge Summary ---
Discharge Summary Date of Service February 08, 2025 Principal Dx & Hospital Course #1 = Principal Diagnosis Admission Exam Per Admitting Provider General: patient intubated, no response to painful stimuli, no sedation present Skin: warm, dry, intact, no rashes or lesions, no bite or stings seen HEENT: pupils fixed and dilated bilaterally, trachea midline Heart: +S1/S2, regular, no m/r/g Lungs: equal air entry bilaterally, coarse breath sounds on right, no wheeze Abd: +BS, soft, non distended Ext: palpable pulses, no edema Neuro: intubated, no response to noxious stimuli Discharge Exam Patient without spontaneous heart tones or respirations, pupils fixed and dilated bilaterally, no withdrawal from painful stimuli Patient pronounced on 02/08/2025 at 04:25 at bedside Discharge Plan Discharge Items Patient Disposition: Other Date/Time: 02/08/25 04:25 Hospital Stay Data Consultations 02/07/25 23:54 ED Decision to Admit Stat 02/08/25 01:26 Consult Child Care Attendant School Routine Diagnostic Imagining Performed 02/07/25 23:52 CT angio chest PE protocol Stat CT head/brain wo con Stat 02/08/25 00:29 CT angio abdomen pelvis w con Stat Total Time Total Time Spent Total Time Spent (In Minutes): 20 Coding Level of Care Code None
--- NOTE | 2025-02-08 05:28 | History & Physical Report ---
Date of Service February 08, 2025 Assessment & Plan Admission and Anticipated Discharge Date Admission Date: February 08, 2025 History of Present Illness Chief Complaint: status post cardiac arrest Primary Care Provider: Reji Gray PA-C Arleth Mcdaniel Is a 74-year-old female presenting after an [id number] cardiac arrest. history obtained from patient's , daughter and grandson who are at the bedside. Patient with history of hypertension, hyperlipidemia, GERD and breast cancer (most recent PET scan 09/13/2024 with stable findings of osseous metastatic disease with no significant FDG uptake). She returned from camping with her today and they were in the yard watering their garden and reed. Her states that patient went around the side of the house to water her reed. He did not hear from her for a while so he went around the house to look for her and found her laying face down in the mulch and unresponsive - around 20:30. Patient's started CPR and called out to neighbors for help. Neighbors then attempted CPR as well. EMS was called. Initial cardiac rhythm reported to be PEA/Asystole. She received 5 doses of push epinephrine in the field with return of spontaneous circulation. Patient was intubated in the field. In the ER patient persistently hypotensive with blood pressure ranging 5581 / 2765. she was given 1 L of normal saline and started on Levophed. Levophed increased per protocol with minimal improvement in blood pressure. Labs as below with significant metabolic acidosis with pH = 6.89. Lactate = 13.6. Her initial EKG with evidence of ST elevation in aVR with ST depression throughout EKG Cardiology was contactedno catheterization at this time due to patient's elevated lactate Central line placed Patient with fixed and dilated pupils bilaterally upon arrival No sedation. No spontaneous movement noted. Admission requested for continued workup and management ER course: Normal saline x 1 L Levophed drip Sodium bicarbonate x 150 mEq LR x 2 L Escalation of Levophed Vasopressin Epinephrine extensive conversations with family at bedside. Informed them of patient's grim prognosis given [id number] arrest, unknown downtime as well as severe acidosis and metabolic derangements present on labs. decision made to admit patient to the ICU, obtain additional images/workup/lab work to find any reversible causes of patient's cardiac arrest At this time, patient will be made DNR in the event of recurrent cardiac arrest Patient admitted to ICU bed 107 Continued to have refractory hypotension despite escalating pressors. Additional bicarbonate administered, additional fluids given, calcium gluconate, hydrocortisone Patient temporarily paralyzed with vecuronium 8 mg IV due to continued hemodynamic instability and hypoxia Despite escalating therapies patient remained hypotensive VBG with recurrence of acidemia, hypoxic as well as hypercarbia Family ultimately decided to withdraw care Patient's at bedside at time of Patient pronounced 02/08/2025 at 04:25 Allergies Allergy/AdvReac Type Severity Reaction Status Date / Time ranitidine Allergy Intermediate Rash Verified 01/21/23 13:14 Home Medications Medication Instructions Recorded Confirmed Type multivitamin 1 tab PO QPM #0 tabs 10/24/14 02/07/25 History aspirin 81 mg tablet,delayed 81 mg PO DAILY 05/24/20 02/07/25 History release (Kristin Low Dose Aspirin) pravastatin 20 mg tablet 20 mg PO DAILY 05/24/20 02/07/25 History Past Med/Surg History Problem List Severe hypoxemia Shock circulatory Acidosis, lactic (Acute) Respiratory failure (Acute) Non-ST elevation ID (NSTEMI) (Acute) Cardiac arrest (Acute) Breast cancer of upper-outer quadrant of left female breast Recurrent breast cancer Arthritis Breast cancer, left Dyspnea Syncope (Acute) Anxiety (Acute) Nephrolithiasis Breast cancer (Acute 08/02/14) "Abnormal left breast mammogram 07/04/2014 Left breast mammogram 07/17/2014 Status post stereotactic biopsy 08/02/2014 DCIS Negative lymphoscintigraphy Status post partial mastectomy and sentinel lymph node biopsy 10/16/2014 Staged [id number] Status post completion of radiation therapy 12/21/2014 utilizing accelerated partial breast treatment received 3850 cGy" On 01/29/15 16:03 Nalini Matthew wrote "Abnormal left breast mammogram 07/04/2014 Left breast mammogram 07/17/2014 Status post stereotactic biopsy 08/02/2014 DCIS Negative lymphoscintigraphy Status post partial mastectomy and sentinel lymph node biopsy 10/16/2014 Staged [id number] Status post completion of radiation therapy 12/21/2014 utilizing accelerated partial breast treatment received 3850 cGy" On 01/29/15 14:39 Nalini Matthew wrote "Abnormal left breast mammogram 07/04/2014 Left breast mammogram 07/17/2014 Status post stereotactic biopsy 08/02/2014 DCIS Negative lymphoscintigraphy Status post partial mastectomy and sentinel lymph node biopsy 10/16/2014 Staged [id number] " On 11/01/14 10:46 Nalini Matthew wrote "Abnormal left breast mammogram 07/04/2014 Left breast mammogram 07/17/2014 Status post stereotactic biopsy 08/02/2014 DCIS Negative lymphoscintigraphy Status post partial mastectomy and sentinel lymph node biopsy 10/16/2014 Staged [id number] Oncotype DX pending" On 11/01/14 10:41 Nalini Matthew wrote "Abnormal left breast mammogram 07/04/2014 Left breast mammogram 07/17/2014 Status post stereotactic biopsy 08/02/2014 DCIS Negative lymphoscintigraphy Status post partial mastectomy and sentinel lymph node biopsy 10/16/2014 Staged [id number] Oncotype DX pending" GERD (gastroesophageal reflux disease) Ovarian 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 Diabetes Heart disease Mother Kidney stones Brother Cancer Social History Smoking Status: Never smoker Second Hand Exposure: No; Do You Dip or Chew Tobacco: No; Hx Alcohol Use: No Hx Substance Use: No Preferred Language: Icelandic Communication Ability: Effective Visual Impairment: No Limitations Maintenance Service Dispatcher Required: No Beliefs That Will Affect Care: None marital status: Current Living Situation: Spouse Current Living Situation Comment: lives in [place] current occupational status: retired current occupation: worked at [employer], waiter/waitress room service work, other factory work How many Children do You have: 1 Feels Safe at Home: Yes during the past year weight has: decreased > 10 lbs Assistive Devices: None Review of Systems Review of Systems: Unobtainable due to endotracheal tube Physical Exam Physical Exam: General: patient intubated, no response to painful stimuli, no sedation present Skin: warm, dry, intact, no rashes or lesions, no bite or stings seen HEENT: pupils fixed and dilated bilaterally, trachea midline Heart: +S1/S2, regular, no m/r/g Lungs: equal air entry bilaterally, coarse breath sounds on right, no wheeze Abd: +BS, soft, non distended Ext: palpable pulses, no edema Neuro: intubated, no response to noxious stimuli Results & Data Results & Data Vital Signs (Past 12 Hours) Vital Signs Temp Pulse Pulse Resp BP BP Pulse Ox 02/08/25 04:20 02/08/25 04:15 31.7 C L 59 L 0 L 74 L 02/08/25 03:45 31.6 C L 94 H 20 66 L 02/08/25 03:45 107/73 02/08/25 03:45 107/73 02/08/25 03:45 107/73 02/08/25 03:36 31.6 C L 95 H 20 70 L 02/08/25 03:21 31.5 C L 99 H 20 71 L 02/08/25 03:00 94/63 L 02/08/25 03:00 94/63 L 02/08/25 02:59 99 H 63 L 02/08/25 02:57 31.4 C L 101 H 20 64 L 02/08/25 02:48 31.4 C L 101 H 20 65 L 02/08/25 02:45 72/49 L 02/08/25 02:36 31.4 C L 96 H 16 67 L 02/08/25 02:30 02/08/25 02:27 31.3 C L 96 H 23 76 L 02/08/25 02:18 31.3 C L 94 H 20 74 L 02/08/25 02:15 62/42 L 02/08/25 02:15 62/42 L 02/08/25 02:15 62/42 L 02/08/25 02:12 31.3 C L 95 H 21 76 L 02/08/25 02:09 31.3 C L 93 H 18 75 L 02/08/25 02:05 60/49 L 02/08/25 02:05 60/49 L 02/08/25 02:05 60/49 L 02/08/25 02:03 31.3 C L 93 H 20 84 L 02/08/25 02:00 60/51 L 02/08/25 02:00 60/51 L 02/08/25 02:00 31.3 C L 93 H 22 86 L 02/08/25 01:57 31.3 C L 93 H 18 84 L 02/08/25 01:53 92 H 24 92 02/08/25 01:20 90 20 81/65 L 99 02/08/25 01:01 90 26 H 79/58 L 99 02/08/25 00:56 83/65 L 02/08/25 00:50 63/39 L 02/08/25 00:33 91 H 24 61/33 L 98 02/08/25 00:12 89 16 74/56 L 97 02/08/25 00:00 85 16 84/65 L 97 02/07/25 23:50 82 20 89 L 02/07/25 23:44 84 18 76/27 L 97 02/07/25 23:12 83 22 90/51 L 86 L 02/07/25 22:52 89/50 L 02/07/25 22:52 89/50 L 02/07/25 22:50 89/53 L 02/07/25 22:46 74/45 L 02/07/25 22:41 97 02/07/25 22:32 71 02/07/25 22:24 64 20 98 02/07/25 22:22 55/35 L 02/07/25 22:22 55/35 L 02/07/25 22:21 61 20 98 02/07/25 22:20 58/33 L 02/07/25 22:18 65 20 99 02/07/25 22:18 57/34 L 02/07/25 22:18 57/34 L 02/07/25 22:13 02/07/25 22:07 68 25 H 99 02/07/25 22:00 63 20 90 02/07/25 21:57 66 O2 Del Method FiO2 02/08/25 04:20 100 02/08/25 04:15 02/08/25 03:45 02/08/25 03:45 02/08/25 03:45 02/08/25 03:45 02/08/25 03:36 02/08/25 03:21 02/08/25 03:00 02/08/25 03:00 02/08/25 02:59 02/08/25 02:57 02/08/25 02:48 02/08/25 02:45 02/08/25 02:36 02/08/25 02:30 100 02/08/25 02:27 02/08/25 02:18 02/08/25 02:15 02/08/25 02:15 02/08/25 02:15 02/08/25 02:12 02/08/25 02:09 02/08/25 02:05 02/08/25 02:05 02/08/25 02:05 02/08/25 02:03 02/08/25 02:00 02/08/25 02:00 02/08/25 02:00 02/08/25 01:57 02/08/25 01:53 100 02/08/25 01:20 Mechanical Vent 02/08/25 01:01 Mechanical Vent 02/08/25 00:56 02/08/25 00:50 02/08/25 00:33 02/08/25 00:12 02/08/25 00:00 Mechanical Vent 02/07/25 23:50 100 02/07/25 23:44 Mechanical Vent 02/07/25 23:12 Mechanical Vent 02/07/25 22:52 02/07/25 22:52 02/07/25 22:50 02/07/25 22:46 02/07/25 22:41 Mechanical Vent 02/07/25 22:32 02/07/25 22:24 02/07/25 22:22 02/07/25 22:22 02/07/25 22:21 02/07/25 22:20 02/07/25 22:18 02/07/25 22:18 02/07/25 22:18 02/07/25 22:13 Mechanical Vent 02/07/25 22:07 Mechanical Vent 02/07/25 22:00 100 02/07/25 21:57 Laboratory Results Laboratory Results WBC 2.16 K/ul (4.8-10.8) L 02/08/25 00:49 RBC 3.16 M/uL (4.20-5.40) L 02/08/25 00:49 Hgb 11.0 g/dl (12.0-16.0) L 02/08/25 00:49 POC Hgb 8.2 g/dl (12.0-16.0) L 02/08/25 03:20 Hct 33.3 % (37.0-47.0) L 02/08/25 00:49 POC Hct 24 % (37-47) L 02/08/25 03:20 MCV 105.4 fL (80.0-100.0) H D 02/08/25 00:49 MCH 34.8 pg (25.0-34.0) H 02/08/25 00:49 MCHC 33.0 g/dL (32.0-36.0) D 02/08/25 00:49 RDW Std Deviation 51.0 fL (36.4-46.3) H 02/08/25 00:49 RDW Coeff of Miguel 13.2 % (11.5-14.5) 02/08/25 00:49 Plt Count 152 K/uL (130-400) 02/08/25 00:49 MPV 9.6 fL (9.4-12.4) 02/08/25 00:49 Immature Gran % (Auto) 1.4 % 02/08/25 00:49 Neut % (Auto) 29.6 % 02/08/25 00:49 Lymph % (Auto) 63.0 % 02/08/25 00:49 Jenkins % (Auto) 2.3 % 02/08/25 00:49 Eos % (Auto) 1.4 % 02/08/25 00:49 Baso % (Auto) 2.3 % 02/08/25 00:49 Neut # (Auto) 0.64 K/uL (1.40-6.50) L* 02/08/25 00:49 Lymph # (Auto) 1.36 K/uL (1.20-3.40) 02/08/25 00:49 Jenkins # (Auto) 0.05 K/uL (0.11-0.59) L 02/08/25 00:49 Eos # (Auto) 0.03 K/uL (0.00-0.50) 02/08/25 00:49 Baso # (Auto) 0.05 K/uL (0.00-0.20) 02/08/25 00:49 Immature Gran # (Auto) 0.03 K/uL (0.01-0.20) 02/08/25 00:49 Absolute Nucleated RBC 0.06 K/uL (0.00-0.12) 02/08/25 00:49 Nucleated RBC % (auto) 2.8 % 02/08/25 00:49 Polychromasia 1+ 02/07/25 22:08 PT 11.8 Seconds (9.0-12.0) 02/07/25 22:08 INR 1.1 (0.9-1.1) 02/07/25 22:08 APTT 81 Seconds (21-31) H* 02/07/25 22:08 PTT Ratio 3.0 02/07/25 22:08 POC pH 7.17 (7.35-7.45) L* 02/08/25 03:20 POC pCO2 53 mmHg (35-46) H 02/08/25 03:20 POC pO2 47 mmHg (80-95) L 02/08/25 03:20 POC HCO3 19 dilia/L (19-24) 02/08/25 03:20 POC Total CO2 21 mmol/L (24-31) L 02/08/25 03:20 POC Base Excess -9.0 dilia/L (-9-1.8) 02/08/25 03:20 POC ABG O2 Sat 71.0 % (90-95) L 02/08/25 03:20 VBG pH 7.24 (7.36-7.41) L 02/08/25 00:49 VBG pCO2 44 mmHg (38-50) 02/08/25 00:49 VBG pO2 53 mmHg 02/08/25 00:49 VBG HCO3 19 mmol/L 02/08/25 00:49 VBG O2 Saturation 80.1 % 02/08/25 00:49 VBG Base Excess -8.3 mEq/L 02/08/25 00:49 POC Sodium 140 mmol/L (135-144) 02/08/25 03:20 Sodium 145 mmol/L (136-145) 02/08/25 00:49 POC Potassium 3.3 mmol/L (3.3-5.0) 02/08/25 03:20 Potassium 4.4 mmol/L (3.5-5.1) 02/08/25 00:49 Chloride 108 mmol/L (98-107) H 02/08/25 00:49 Carbon Dioxide 20 mmol/L (21-32) L 02/08/25 00:49 Anion Gap 17 (3-11) H 02/08/25 00:49 BUN 23 mg/dl (6-23) 02/08/25 00:49 Creatinine 1.45 mg/dl (0.6-1.2) H 02/08/25 00:49 Est Cr Clr Drug Dosing 29.6 ml/min 02/08/25 00:49 eGFR 37.38 02/08/25 00:49 BUN/Creatinine Ratio 15.9 (10-20) 02/08/25 00:49 Glucose 289 mg/dl (70-99(Fasting)) H 02/08/25 00:49 POC Glucose 280 mg/dl (70-99) H 02/07/25 21:58 POC Glucose (other) 331 mg/dl (70-99) H 02/08/25 03:16 Lactate 11.6 mmol/L (0.4-2.0) H* 02/08/25 00:49 Calcium 7.9 mg/dl (8.6-10.3) L 02/08/25 00:49 Total Bilirubin 0.3 mg/dl (0.2-1.0) 02/07/25 22:08 AST 191 U/L (13-39) H 02/07/25 22:08 ALT 208 U/L (7-52) H 02/07/25 22:08 Alkaline Phosphatase 53 U/L (34-104) 02/07/25 22:08 Troponin I High Sens 1454.8 pg/ml (0-14) H* D 02/08/25 00:49 Total Protein 4.7 gm/dl (6.0-8.3) L 02/07/25 22:08 Albumin 3.1 gm/dl (3.4-5.0) L 02/07/25 22:08 Globulin 1.6 gm/dl (2.5-4.0) L 02/07/25 22:08 Albumin/Globulin Ratio 1.9 (0.9-2) 02/07/25 22:08 Lipase 110 U/L (11-82) H 02/07/25 22:08 Impressions Chest X-Ray 02/07/25 23:32 Exam(s): XR CXR 1 VIEW EXAM: XR Chest, 1 View CLINICAL HISTORY: Reason for exam: central line placement. TECHNIQUE: Frontal view of the chest. COMPARISON: Exam performed earlier on the same date FINDINGS: Lungs: Multifocal pneumonia unchanged from prior exam. Pleural space: Unremarkable. No pneumothorax. Heart: Unremarkable. No cardiomegaly. Mediastinum: Unremarkable. Normal mediastinal contour. Bones/joints: Unremarkable. No acute fracture. Tubes, lines and devices: Endotracheal tube is seen with its tip just below the bradley. This has been pulled back several cm in no longer cyst within the right mainstem bronchus. Interval placement of right-sided central venous catheter with its tip in the proximal SVC. Esophageal catheter is present with its tip at the gastroesophageal junction. This should be advanced several cm. IMPRESSION: Endotracheal tube is in much better position sitting just below the bradley. Esophageal catheter seen with its tip at the gastroesophageal junction. This should be advanced at least 5 distended cm Right-sided central venous catheter in the proximal SVC. Electronically signed by: Hai Wilson MD 02/08/25 00:56 AM Chest CTA 02/07/25 23:52 EXAM: CT angio chest PE protocol CLINICAL HISTORY: PE, post arrest TECHNIQUE: Contiguous axial images were obtained from the neck base through the upper abdomen following intravenous administration of iodinated contrast material. Angiographic images were processed, 3D MIP images were acquired for interpretation. If IV contrast material had not been administered, the likelihood of detecting abnormalities relevant to the patient's condition would have been substantially decreased. Coronal and sagittal 3-D MIPs were likewise performed and indicated to increase the sensitivity of detecting diffuse clinically relevant pathology. CT scan was performed according to ALARA (as low as reasonable achievable). COMPARISON: None. FINDINGS: Adequate contrast bolus without evidence of pulmonary embolism. Mild right pleural effusion is seen. Multiple irregular areas of ground glass and soft tissue attenuation are seen in the lungs. Smooth interlobular septal thickening is seen. The central airways are patent. Endotracheal tube is seen in situ with its tip reaching into the right main bronchus. Nasogastric tube is seen in situ with its tip at gastro-esophageal junction. Advised repositioning. The heart, aorta, and pulmonary arteries are of normal size and configuration. No pericardial effusion is identified. There are appreciable aortic atherosclerotic calcifications. Multiple calcified mediastinal and left hilar lymph nodes are seen. Mildly displaced fractures of left 5th-7th ribs. A lytic lesion measuring 12mm is seen in T2 vertebral body with internal dots - likely a hemangioma. IMPRESSION: 1. No evidence of pulmonary embolism. 2. Diffuse smooth interlobular septal thickening with areas of ground glass attenuation - suggestive of pulmonary edema. 3. Multiple patchy consolidations in lungs - suggestive of associated infective etiology. 4. Mildly displaced fractures of left 5th-7th ribs. 5. Enditracheal tube in situ with tip in right main bronchus. Advise repositioning. Electronically signed by Samy Conner 02-08-2025 03:[address] 02/07/25 23:52 EXAM: CT head/brain wo con CLINICAL HISTORY: post cardiac arrest TECHNIQUE: Multiple axial images are obtained from the skull base to the vertex without contrast. CT scan was performed according to ALARA (as low as reasonably achievable). COMPARISON: none FINDINGS: The brain shows normal morphology, attenuation, and volume for age. No evidence of space occupying lesion, hemorrhage, edema, mass effect, midline shift, extra axial collection, or hydrocephalus is noted. Ventricles, sulci, and basal cisterns are symmetric and normal in size and configuration. The herndon-white matter differentiation is preserved. Visualized mastoid air cells are well aerated. Orbital contents are within normal limits. Bony structures are intact. Bilateral posterior ethmoidal sinusitis. Fluid secretion seen in bilateral posterior choana and nasopharynx. IMPRESSION: 1. No evidence of acute intracranial abnormality is demonstrated. 2. Bilateral posterior ethmoidal sinusitis. 3. Fluid secretion seen in bilateral posterior choana and nasopharynx. Electronically signed by Samy Conner 02-08-2025 02:14 AM Abdomen/Pelvis CTA 02/08/25 00:29 EXAM: CT angio abdomen pelvis w con CLINICAL HISTORY: hypotension, cardiac arrest TECHNIQUE: Contrast enhanced thin slice CT angiography scan of the abdominal aorta was performed with intravenous contrast. Angiographic images were processed, 3D MIP images were acquired for interpretation. Contiguous axial images were obtained. Reformatted coronal and sagittal images were also reviewed. If IV contrast material had not been administered, the likelihood of detecting abnormalities relevant to the patients condition would have been substantially decreased. CT scan was performed according to ALARA (as low as reasonable achievable). COMPARISON: none FINDINGS: Abdominal aorta is normal in course, calibre and opacification. Origin of coeliac artery, superior mesenteric artery , bilateral main renal and lumbar arteries are normal with no hemodynamically significant ostial stenosis noted. Bilateral common, external and internal iliac arteries are normal in course, caliber and opacification. Solid abdominal organs including spleen, pancreas and bilateral kidneys reveal no significant abnormality. No evidence of ascites. Fluid filled and mildly dilated small bowel loops, measuring upto 3.2cm in diameter with no obvious transition point- could represent paralytic ileus Approximately 2.8mm calculus in upperpole of left kidney Moderate fecal content in large bowel loops IVC is collapsed- likely hypovolemia Liver shows diffusely heterogenous attenuation Nasogastric tube insitu with tip seen in distal oesophagus- needs repositioning Ogden's catheter insitu IMPRESSION: IVC is collapsed, hyperenhancing bilateral adrenal glands - likely suggestive of hypovolemia / circulatory collapse No evidence of stenosis or aneurysm in visualised intra abdominal arteries. No evidence of dissection. Fluid filled and mildly dilated small bowel loops with no obvious transition point- could represent paralytic ileus Moderate fecal content in large bowel loops on right side. Non obstructive left renal calculus Liver shows diffusely heterogenous attenuation, could be due to underlying cardiac cause. Nasogastric tube insitu with tip seen in distal oesophagus- needs repositioning Electronically signed by Samy Conner 02-08-2025 03:07 AM PG Care Time/CCT Total # of Minutes Spent Total Time Spent with Patient: Total time spent is greater than 50% in coordination of care (as documented) at patient's floor/unit and/or counseling patient: Coding Level of Care Code 93941 INT INP/OBS CARE 3/75MIN
[2025-02-08] MEDS ORDERED: SODIUM CHLORIDE 0.9% 10ML FLUSH IV ONE (05:43)
[2025-02-08] MEDS ORDERED: INSULIN ASPART PER UNIT CHARGE SC SCH (07:30)
[2025-02-08] MEDS ORDERED: PIPERACILLIN/TAZOBACTAM 4.5 GM/100 ML BAG IV SCH (08:00)
--- NOTE | 2025-02-09 14:55 | Electrocardiogram Report ---
Test Reason : Blood Pressure : */* mmHG Vent. Rate : 93 BPM Atrial Rate : 93 BPM P-R Int : 170 ms QRS Dur : 132 ms QT Int : 438 ms P-R-T Axes : 83 106 74 degrees QTcB Int : 544 ms Normal sinus rhythm Right bundle branch block Abnormal ECG When compared with ECG of 07-Feb-2025 22:00, (unconfirmed) Sinus rhythm has replaced Wide QRS rhythm Vent. rate has increased by 34 bpm Confirmed by Elbert Sherwood ([id number]) on 02/09/2025 2:55:07 PM Referred By: REFERRED SELF Confirmed By: Elbert Sherwood
--- NOTE | 2025-02-10 05:53 | Electrocardiogram Report ---
Test Reason : Blood Pressure : */* mmHG Vent. Rate : 59 BPM Atrial Rate : * BPM P-R Int : * ms QRS Dur : 138 ms QT Int : 508 ms P-R-T Axes : * 264 93 degrees QTcB Int : 502 ms Wide QRS rhythm Right bundle branch block T wave abnormality, consider lateral ischemia Consider ischemia Inferior leads Abnormal ECG When compared with ECG of 24-May-2020 12:10, Wide QRS rhythm has replaced Sinus rhythm Ischemic changes are now seen Confirmed by Elbert Sherwood ([id number]) on 02/10/2025 5:53:08 AM Referred By: REFERRED SELF Confirmed By: Elbert Sherwood
== END 2025-02-08 05:44 | disposition expired ==
LOC: ED 21:50 → 1E 02-08 00:48